=== PATIENT | female | born 1965 | race Caucasian/White ===

== ENCOUNTER 2020-04-12 09:32 | Outpatient (CLI) | payer OTHER, SELFPAY ==
--- NOTE | ~2020-04-12 | MM_ITS ---
EXAMINATION: MM screening [facility] BI w radha HISTORY: Screening mammogram TECHNIQUE: Craniocaudal and mediolateral oblique 3-D tomosynthesis images were obtained and synthetic 2-D images were generated. CAD analysis was submitted and interpreted. COMPARISON: 05/03/2017, 05/02/2016, 04/26/2015, 05/12/2014 BREAST PARENCHYMAL COMPOSITION: There are scattered areas of fibroglandular density. FINDINGS: Scattered benign-appearing calcifications are present. There is no evidence of suspicious m ass, calcification, or architectural distortion to suggest malignancy in either breast. There has bee n no suspicious interval change. IMPRESSION: 1. No mammographic evidence of malignancy. 2. Recommend routine screening mammography in one year. BI-RADS Category 2: Benign finding(s). Reviewed, dictated and finalized at location A.
== END 2020-04-12 09:33 | disposition home or self-care (01) ==
PROVIDERS: PCP Internal Medicine
DX: Z12.31 Encounter for screening mammogram for malignant neoplasm of breast (principal)
CPT/HCPCS: 77063; 77067

== ENCOUNTER 2020-08-15 10:21 | Emergency (ER) | payer OTHER, SELFPAY ==
[2020-08-15] VITALS (14 sets, daily range): BP systolic 131–149; BP diastolic 80–90; PULSE 82–113; RESP 14–30; TEMP 35.8; O2SAT 95–100
--- NOTE | ~2020-08-15 | CT_ITS ---
EXAMINATION: CT brain wo con, CT facial bones wo con DATE: 08/15/2020 10:57 INDICATION: Fall with head injury TECHNIQUE: 1. Computed tomography (CT) of the head was performed without intravenous contrast. Sagittal and samantha nal reconstructions were performed. The mA was adjusted according to patient size. Iterative reconstr uction technique was employed. The dose-length product was 605.33 mGy-cm. 2. CT of the maxillofacial bones was performed without intravenous contrast. Sagittal and coronal rec onstructions were performed. Automated exposure control and iterative reconstruction technique were e mployed. The dose-length product was 417.66 mGy-cm. COMPARISON: Brain MR dated 07/11/2012 FINDINGS: Head CT: No calvarial fracture. No acute intracranial hemorrhage, acute infarction or abnormal extra axial flu id collection. Ventricles are normal and symmetric. 10 x 9 x 5 mm extra-axial calcified dural based m ass most consistent with a meningioma overlying the posterior right frontal lobe. Intracranial calcif ied cerebral atherosclerosis is noted. The mastoid air cells and middle ear cavities are clear. Maxillofacial CT: No significant displacement of bilateral nasal bone fractures. There is slight leftward angulation of the nose which appears unchanged since the prior study. No other maxillofacial fractures identified. Specifically the mandible, zygomatic arches and philippe of the orbits and paranasal sinuses are intact . Extensive dental disease with multiple prior root canals. There is a prominent periapical lucency s urrounding the roots of both of the left maxillary molars, the more anterior with change of prior jj t canal in the more posterior with a dental Tete. There is bulging and thinning of the overlying cor danilo at the floor of the left maxillary sinus with moderate overlying mucosal thickening which is like ly related to the dental disease. IMPRESSION: 1. No calvarial fracture or acute intracranial process. 2. Bilateral nondisplaced nasal bone fractures. 3. 10 x 9 x 5 mm calcified extra-axial meningioma overlying the posterior right frontal lobe. 4. Dental disease with dental Tete at the posterior most left maxillary molar and prominent peripelv ic lucency surrounding the roots of this and the more anterior molar which appears to thin and bulges the overlying cortex at the floor the left maxillary sinus. Consider dental referral. Reviewed, dictated and finalized at location A. ON AND BUCKLE MAKER IMPRESSION: 1. No calvarial fracture or acute intracranial process. 2. Bilateral nondisplaced nasal bone fractures. 3. 10 x 9 x 5 mm calcified extra-axial meningioma overlying the posterior right frontal lobe. 4. Dental disease with dental Tete at the posterior most left maxillary molar and prominent peripelvic lucency surrounding the roots of this and the more ant erior molar which appears to thin and bulges the overlying cortex at the floor the left maxillary sinus. Consider dental referral.
--- NOTE | ~2020-08-15 | XR_ITS ---
EXAMINATION: XR ribs LT 2V w CXR 2V DATE: 08/15/2020 11:04 INDICATION: Left chest injury. Fall. TECHNIQUE: Frontal and lateral views of the chest and 3 views of the left ribs were obtained. COMPARISON: None. FINDINGS: CHEST TWO VIEWS: The chest demonstrates clear lungs without pneumonia, pleural effusion, or pneumotho rax. The heart size is normal. Surgical clips in the right upper quadrant are likely from cholecystec jud. LEFT RIBS: There is no rib fracture. IMPRESSION: 1. No rib fracture. Reviewed, dictated and finalized at location B. PEDDLER IMPRESSION: 1. No rib fracture.
--- NOTE | 2020-08-15 10:48 | ECG_ITS ---
Measurements Intervals [place] Rate: 86 P: 35 TN: 169 QRS: 17 QRSD: 90 T: 4 QT: 352 QTc: 422 Interpretive Statements SINUS RHYTHM NORMAL ECG Electronically Signed On 08-15-2020 13:44:01 MITTEN SEWER by Shree Sousa D.O.
[2020-08-15 11:07] LABS: Basophils Percent Auto 0.5 % (0.2-1.2); Eosinophils Absolute Auto 0.1 K/mm3 (0-0.3); Eosinophils Percent Auto 2.3 % (0-4.4); Hematocrit 35.8 % (37.0-47.0); Hemoglobin 12.4 g/dL (12.0-15.0); Immature Granulocyte Absolute 0.04 K/mm3 (0.00-0.031); Immature Granulocyte Percent A 0.7 % (0-0.5); Lymphocytes Absolute Auto 1.17 K/mm3 (0.9-3.2); Lymphocytes Percent Auto 20.4 % (18.3-44.2); Mean Corpuscular HGB Conc 34.6 g/dl (32-36); Mean Corpuscular Hemoglobin 30.7 pg (26-34); Mean Corpuscular Volume 88.6 fl (80-100); Mean Platelet Volume 9.4 fl (7.4-10.4); Monocytes Absolute Auto 0.6 K/mm3 (0.1-0.6); Monocytes Percent Auto 9.8 % (2.6-8.5); Neutrophils Absolute Auto 3.8 K/mm3 (1.3-6.7); Neutrophils Percent Auto 66.3 % (45.5-73.1); Platelet Count Result 300 k/mm3 (150-375); Red Blood Count 4.04 M/mm3 (4.2-5.4); Red Cell Distribution Width 12.4 % (11.5-14.5); White Blood Count 5.7 K/mm3 (4.5-10.0)
[2020-08-15 11:19] LABS: Alanine Aminotransferase 27 U/L (4-35); Albumin Level 4.1 g/dL (3.5-5.1); Alkaline Phosphatase 72 U/L (38-126); Anion Gap 10 mmol/L (8-16); Aspartate Amino Transferase 26 U/L (14-36); Bilirubin,Total 0.3 mg/dL (0.2-1.3); Blood Urea Nitrogen 11 mg/dL (7-17); Calcium 9.1 mg/dL (8.4-10.2); Carbon Dioxide 28 mmol/L (22-30); Chloride 101 mmol/L (98-107); Estimated CRCL calculation 69 ml/min; Estimated Glomerular Filt Rate > 60; Glucose 145 mg/dL (65-105); Potassium 3.7 mmol/L (3.4-5.0); Sodium 139 mmol/L (137-145)
[2020-08-15] MEDS: SODIUM CHLORIDE 0.9% IV 1,000 ML 999 ML IV CONT (11:22)
[2020-08-15 11:33] LABS: Add Urine Microscopic? NO; Appearance Urine Clear (Clear); Bacteria Urine Trace /hpf; Bilirubin Urine Negative (Negative); Blood Urine Negative (Negative); Color Urine Colorless (Yellow); Glucose Urine UA Negative (Negative); Ketones Urine Negative (Negative); Leukocyte Esterase Ur Negative LEU/UL (Negative); Nitrate Urine Negative (Negative); Protein Urine Negative (Negative); Specific Grav Ur 1.008 (1.001-1.035); Squamous Epithelial Cell Urine Rare /hpf (Few); Urobilinogen Urine Negative mg/dL (<2.0)
--- NOTE | 2020-08-15 12:02 | ED.GENADULT ---
HPI - General Adult General Chief complaint: Syncope Stated complaint: Head Injury Time Seen by Provider: 08/15/20 10:25 Source: patient and family Mode of arrival: ambulatory Limitations: no limitations History of Present Illness HPI narrative: Patient is a 55-year-old female who presents to emergency department for evaluation of dizziness headache and facial injuries patient notes that she on had taken extra carbamazepine which she has prescribed for trigeminal neuralgia which made her dizzy has done historically and notes that she fell during the night possibly blacking out patient notes that this was short-lived and has since felt dizzy with headache primarily worse with activity movement with some slight nausea with bruising to the face. Patient presents per private vehicle no distress has not been seen for this complaint and denies similar symptoms after which and has only been taking her carbamazepine once a day Related Data Home Medications Medication Instructions Recorded Confirmed simvastatin 10 mg tablet 10 mg PO DAILY tablet 05/11/20 06/04/20 Allergies Allergy/AdvReac Type Severity Reaction Status Date / Time tetracycline Allergy Mild HIVES, Verified 08/15/20 11:08 FACE AND NECK SWELLING codeine Allergy Unknown Vomiting Verified 08/15/20 11:08 Review of Systems Review of Systems: All systems reviewed & are unremarkable except as noted in HPI and below PMFSH Past Medical History Medical History (Updated 08/15/20 @ 12:06 by Heriberto Reynaga PA-C) Colon, diverticulosis Hypertension Irritable bowel syndrome with diarrhea Family History Family History Father Patient's father is Diabetes mellitus Family history of cardiovascular disease Sibling Diabetes mellitus Patient's sister is in good health Mother Family history of elevated blood lipids Other Cerebrovascular accident Family history of arthritis Family history of gout Family history of heart disease in male family member before age 55 Hypertension Social History Social History Smoking status: Never smoker Second hand tobacco smoke exposure: No Alcohol intake: current Substance use: never Exam Narrative: Exam Narrative: GENERAL: Well-appearing, well-nourished, and in no acute distress. HEAD: Normocephalic, bruising under the bilateral eyes with tenderness over the nasal bridge EYES: PERRLA and EOMI. ENT: Nares clear, no rhinorrhea or epistaxis. Mucous membranes moist. Oropharynx without tonsillar hypertrophy exudate or other lesions. Small abrasion and bruising to the right lower lip NECK: Supple. No adenopathy or masses. CHEST: Clear to auscultation. No respiratory distress. No wheezes rales or rhonchi HEART: Regular rate and rhythm. No murmur heard. Normal peripheral pulses. ABDOMEN: Soft, nontender, nondistended EXTREMITIES: Normal range of motion. No edema. No cervical thoracic or lumbar tenderness SKIN: Warm, dry, no rash. NEURO: No focal deficits. Alert and oriented x3. Cranial nerves II through XII grossly intact. Normal speech and gait PSYCH: Normal mood and affect. Course Course Emergency Course: Patient in the room in no distress hemodynamically stable felt appropriate for discharge home agreeing to follow-up as directed or to return if symptoms worsen or concerns Vital Signs Vital signs: Vital Signs Temperature 96.4 F L 08/15/20 10:26 Pulse Rate 88 08/15/20 10:26 Respiratory Rate 20 08/15/20 10:26 Blood Pressure 149/86 H 08/15/20 10:26 Pulse Oximetry 97 08/15/20 10:26 Temperature 96.4 F L 08/15/20 10:26 Pulse Rate 92 08/15/20 11:31 Respiratory Rate 16 08/15/20 11:31 Blood Pressure 133/81 08/15/20 11:31 Pulse Oximetry 95 08/15/20 11:15 Medical Decision Making MDM Narrative Medical decision making narrative: Carly
--- NOTE | 2020-08-31 13:03 | PC.NURSE ---
LATE ENTRY This note is being entered to document information to the patient's record. The following information was omitted on [08/15/20], by [Valentina Ojeda]. NS stopped at 1115.
== END 2020-08-15 12:17 | disposition home or self-care (01) ==
PROVIDERS: Emergency Medicine Emergency Medical Services; Emergency Provider Emergency Medicine; PCP Internal Medicine
DX: S02.2XXA Fracture of nasal bones, initial encounter for closed fracture (principal); R55 Syncope and collapse; G50.0 Trigeminal neuralgia; I10 Essential (primary) hypertension; K57.90 Diverticulosis of intestine, part unspecified, without perforation or abscess without bleeding; K58.0 Irritable bowel syndrome with diarrhea; D32.0 Benign neoplasm of cerebral meninges; K02.9 Dental caries, unspecified; W18.39XA Other fall on same level, initial encounter
CPT/HCPCS: 36415; 70450; 70486; 71046; 71100; 80053; 81003; 85025; 93005; 99284; J7030

== ENCOUNTER 2021-02-10 14:07 | Outpatient (CLI) | payer OTHER, SELFPAY | END 2021-02-10 14:08 | disposition home or self-care (01) | PROVIDERS: PCP Internal Medicine; Visit Provider Otolaryngology | DX: H93.13 Tinnitus, bilateral (principal); H90.3 Sensorineural hearing loss, bilateral | CPT/HCPCS: 92557; 92567 ==

== ENCOUNTER 2021-03-28 09:30 | Outpatient (RCR) | payer OTHER, SELFPAY ==
[2021-02-01 10:03] VITALS: BMI 33.0
[2021-02-01 10:04] VITALS: BMI 33.0
[2021-03-28 09:37] VITALS: BMI 33.0
== END 2021-04-19 15:02 | disposition home or self-care (01) ==
LOC: ANHDMC 09:30
PROVIDERS: PCP Internal Medicine; Referring Provider Physician Assistant; Visit Provider Physician Assistant
DX: R73.03 Prediabetes (principal); Z71.3 Dietary counseling and surveillance
CPT/HCPCS: 97802; 97803

== ENCOUNTER → 2021-10-06 09:47 | Outpatient (CLI) | payer OTHER, SELFPAY ==
[2021-10-06 20:43] LABS: SARS-CoV-2 RNA PCR Positive
== END ==
PROVIDERS: PCP Internal Medicine; Visit Provider Physician Assistant
DX: U07.1 COVID-19 (principal)
CPT/HCPCS: C9803; U0003; U0005

== ENCOUNTER 2021-10-10 10:12 | Outpatient (RCR) | payer OTHER, SELFPAY ==
[2021-10-10] MEDS: FAMOTIDINE 20 MG TABLET PO (15:19)
[2021-10-10] MEDS: ACETAMINOPHEN 325 MG TABLET 650 MG PO (15:19)
[2021-10-10] MEDS: diphenhydrAMINE HCl CAP 25 MG CAPSULE PO (15:19)
[2021-10-10 15:20] VITALS: BP 134/74; PULSE 90; RESP 20; TEMP 36.4; O2SAT 98
[2021-10-10 16:21] VITALS: BP 129/80
== END 2021-10-10 17:00 ==
LOC: AMCINF 10:12
PROVIDERS: PCP Physician Assistant; Referring Provider Physician Assistant; Visit Provider Internal Medicine Hematology & Oncology
DX: U07.1 COVID-19 (principal)
CPT/HCPCS: A9270; M0243; Q0244

== ENCOUNTER 2022-07-13 15:12 | Outpatient (CLI) | payer OTHER, SELFPAY ==
--- NOTE | ~2022-07-13 | MM_ITS ---
EXAMINATION: MM screening [facility] BI w radha HISTORY: Screening TECHNIQUE: Craniocaudal and mediolateral oblique 3-D tomosynthesis images were obtained and synthetic 2-D images were generated. CAD analysis was submitted and interpreted. COMPARISON: Comparison to multiple prior studies sequentially, with oldest reviewed study dated . BREAST PARENCHYMAL COMPOSITION: There are scattered areas of fibroglandular density. FINDINGS: No significant change to punctate benign-appearing bilateral breast calcifications. There i s no evidence of suspicious mass, calcification, or architectural distortion to suggest malignancy in either breast. There has been no suspicious interval change. IMPRESSION: 1. No mammographic evidence of malignancy. 2. Recommend routine screening mammography in one year. BI-RADS Category 2: Benign finding(s). Reviewed, dictated and finalized at location A.
== END 2022-07-13 15:13 | disposition home or self-care (01) ==
LOC: ANHIMG 15:14
PROVIDERS: PCP Internal Medicine; Visit Provider Internal Medicine
DX: Z12.31 Encounter for screening mammogram for malignant neoplasm of breast (principal)
CPT/HCPCS: 77063; 77067

== ENCOUNTER 2022-09-24 15:16 | Outpatient (CLI) | payer OTHER, SELFPAY ==
[2022-09-24 16:36] LABS: Influenza A QL RT-PCR Negative (Negative); Influenza B QL RT-PCR Negative (Negative); SARS-CoV-2 RNA PCR Negative
== END 2022-09-24 15:17 | disposition home or self-care (01) ==
LOC: ANHLAB 15:18
PROVIDERS: PCP Internal Medicine; Visit Provider Internal Medicine
DX: R50.9 Fever, unspecified (principal); Z20.822 Contact with and (suspected) exposure to COVID-19
CPT/HCPCS: 87636

== ENCOUNTER 2022-11-01 09:58 | Outpatient (CLI) | payer OTHER, SELFPAY ==
--- NOTE | 2022-11-01 10:15 | EST_ITS ---
Patient Info Name: Patricia Clark Age: 57 years : 1965 Gender: Female Ht: 60 in Wt: 175 lbs BSA: 1.87 m2 HR: 76 bpm Exam Date: 11/01/2022 10:49 AM Exam Location: [facility] Card Pulmonary Exam Room: [facility] STRESS LAB Patient Status: Outpatient Admit Date: 11/01/2022 Staff Ordering Physician: Sreekanth Jacob PA-C Health And Physical Education Teacher: Julieth Valente RDCS Attending Provider: Sreekanth Jacob PA-C Exercise Technologist: Shanika Madrid CT Exercise Physician: Shree Sousa DO Exam Type: CA stress echo Study Info Treadmill exercise stress echocardiogram is performed. Summary 1. 1. Negative Tao exercise stress test for ischemic ST changes by ECG criteria. 2. 2. Reduced functional capacity, achieving 7 METs of workload. 3. 3. Appropriate HR response to exercise. 4. 4. Appropriate HR recovery at 1 minute post exercise. 5. 5. Negative stress echocardiogram for ischemia by wall motion analysis. 6. 6. Patient informed of the above results. Stress Echo Findings Left Ventricle Appropriate increase in LV endocardial thickening with systole. Appropriate augmentation of contractility with systole. No wall motion abnormality. Left Ventricle Normal LV systolic function, no wall motion abnormality. Protocol: Tao Stress ECG Details Stage: REST Duration (min): 1 min : 43 sec Speed (mph): 0.0 Grade (%): 0 HR (bpm): 71 SBP (mmHg): 120 DBP (mmHg): 77 METS: --- Stage: REST Duration (min): 6 min : 34 sec Speed (mph): 0.0 Grade (%): 0 HR (bpm): 79 SBP (mmHg): 120 DBP (mmHg): 77 METS: --- Stage: STAGE 1 Duration (min): 1 min : 0 sec Speed (mph): 1.7 Grade (%): 10 HR (bpm): 113 SBP (mmHg): 120 DBP (mmHg): 77 METS: --- Stage: STAGE 1 Duration (min): 2 min : 0 sec Speed (mph): 1.7 Grade (%): 10 HR (bpm): 130 SBP (mmHg): 120 DBP (mmHg): 77 METS: --- Stage: STAGE 1 Duration (min): 3 min : 0 sec Speed (mph): 1.7 Grade (%): 10 HR (bpm): 130 SBP (mmHg): 163 DBP (mmHg): 78 METS: --- Stage: STAGE 2 Duration (min): 1 min : 0 sec Speed (mph): 2.5 Grade (%): 12 HR (bpm): 143 SBP (mmHg): 163 DBP (mmHg): 78 METS: --- Stage: STAGE 2 Duration (min): 2 min : 0 sec Speed (mph): 2.5 Grade (%): 12 HR (bpm): 153 SBP (mmHg): 189 DBP (mmHg): 82 METS: --- Stage: STAGE 2 Duration (min): 3 min : 0 sec Speed (mph): 2.5 Grade (%): 12 HR (bpm): 156 SBP (mmHg): 189 DBP (mmHg): 82 METS: --- Stage: STAGE 3 Duration (min): 0 min : 2 sec Speed (mph): 0.0 Grade (%): 0 HR (bpm): 156 SBP (mmHg): 189 DBP (mmHg): 82 METS: --- Stage: RECOVERY Duration (min): 0 min : 57 sec Speed (mph): 0.0 Grade (%): 0 HR (bpm): 123 SBP (mmHg): 189 DBP (mmHg): 82 METS: --- Stage: RECOVERY Duration (min): 1 min : 57 sec Speed (mph): 0.0 Grade (%): 0 HR (bpm): 104 SBP (mm
== END 2022-11-01 09:59 | disposition home or self-care (01) ==
LOC: ANHCARD 09:59
PROVIDERS: PCP Internal Medicine; Visit Provider Physician Assistant
DX: R06.09 Other forms of dyspnea (principal); R60.0 Localized edema
CPT/HCPCS: 93351

== ENCOUNTER 2022-11-27 10:03 | Emergency (ER) | payer OTHER, SELFPAY ==
--- NOTE | ~2022-11-27 | CT_ITS ---
EXAMINATION: CT abdomen pelvis w con DATE: 11/27/2022 12:42 INDICATION: Abdominal pain TECHNIQUE: Computed tomography (CT) of the abdomen and pelvis was performed with 100 cc Omnipaque 350 intravenous contrast. The dose-length product was 636.46 mGy-cm. Automated exposure control and iter ative reconstruction technique were employed. COMPARISON: CT dated 04/02/2015 FINDINGS: Lung bases are unremarkable. Heart size normal. No significant pleural or pericardial effus ion. Status post cholecystectomy. Fatty infiltration of the liver. The spleen, pancreas, adrenal glan ds and kidneys are unremarkable. There is fluid throughout the small bowel and colon with air-fluid l evels, most likely ileus. No definite obstruction. Colonic diverticulosis without evidence for divert iculitis. Small punctate focus of nondependent gas in the bladder, possibly from recent instrumentati on. Clinically correlate. There are surgical clips suggesting previous appendectomy. Clinically corre late. Mild lumbar spondylosis. IMPRESSION: 1. Fluid throughout the small bowel and colon which may reflect enteritis or ileus. No obstruction. 2: Hepatic steatosis. Reviewed, dictated and finalized at location L. L PROCESS SERVER IMPRESSION: 1. Fluid throughout the small bowel and colon which may reflect enteritis or il eus. No obstruction. 2: Hepatic steatosis.
[2022-11-27 10:04] VITALS: BP 116/79; PULSE 120; RESP 16; TEMP 36.6; O2SAT 96
[2022-11-27 10:29] LABS: Appearance Urine Clear (Clear); Bilirubin Urine Negative (Negative); Blood Urine Trace-lysed (Negative); Color Urine Yellow (Yellow); Glucose Urine UA Negative (Negative); Ketones Urine Negative (Negative); Leukocyte Esterase Ur Negative LEU/UL (Negative); Nitrate Urine Negative (Negative); Protein Urine Negative (Negative); Specific Grav Ur <= 1.005 (1.001-1.035); Urobilinogen Urine 0.2 mg/dL (<2.0)
[2022-11-27 10:29] LABS: Basophils Percent Auto 0.4 % (0.2-1.2); Eosinophils Percent Auto 0.7 % (0-4.4); Hematocrit 40.7 % (37.0-47.0); Hemoglobin 13.6 g/dL (12.0-15.0); Immature Granulocyte Absolute 0.04 K/mm3 (0.00-0.031); Immature Granulocyte Percent A 0.7 % (0-0.5); Lymphocytes Absolute Auto 0.65 K/mm3 (0.9-3.2); Lymphocytes Percent Auto 11.9 % (18.3-44.2); Mean Corpuscular HGB Conc 33.4 g/dl (32-36); Mean Corpuscular Hemoglobin 29.4 pg (26-34); Mean Corpuscular Volume 88.1 fl (80-100); Mean Platelet Volume 9.7 fl (7.4-10.4); Monocytes Absolute Auto 0.6 K/mm3 (0.1-0.6); Monocytes Percent Auto 11.4 % (2.6-8.5); Neutrophils Absolute Auto 4.1 K/mm3 (1.3-6.7); Neutrophils Percent Auto 74.9 % (45.5-73.1); Platelet Count Result 258 k/mm3 (150-375); Red Blood Count 4.62 M/mm3 (4.2-5.4); Red Cell Distribution Width 13.6 % (11.5-14.5); White Blood Count 5.5 K/mm3 (4.5-10.0)
[2022-11-27 10:32] LABS: Bacteria Urine Trace /hpf; Mucus Urine Rare /lpf; RBC Urine 0-2 /hpf (0-2); Squamous Epithelial Cell Urine Rare /hpf (Few); WBC Urine 0-3 /hpf
[2022-11-27 10:36] LABS: Add Urine Microscopic? YES
[2022-11-27 10:38] LABS: Alanine Aminotransferase 47 U/L (6-35); Albumin Level 4.3 g/dL (3.5-5.1); Alkaline Phosphatase 92 U/L (38-126); Anion Gap 7 mmol/L (8-16); Aspartate Amino Transferase 49 U/L (14-36); Bilirubin,Total 1.2 mg/dL (0.2-1.3); Blood Urea Nitrogen 11 mg/dL (7-17); Calcium 8.4 mg/dL (8.4-10.2); Carbon Dioxide 31 mmol/L (22-30); Chloride 99 mmol/L (98-107); Estimated CRCL calculation 62 ml/min; Estimated Glomerular Filt Rate > 60; Glucose 115 mg/dL (65-110); Lipase 64 U/L (23-300); Potassium 3.5 mmol/L (3.4-5.0); Sodium 137 mmol/L (137-145)
--- NOTE | 2022-11-27 12:19 | ED.ABDPAIN ---
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 Patient vomited once last night, diarrhea almost every hour. Gradually slowing down. Low-grade fever at 99 Fahrenheit. She denies any respiratory symptoms, intermittent abdominal cramps, history of diverticulitis. No bloody diarrhea. Patient started on Imodium [id number] last night. Related Data Allergies Allergy/AdvReac Type Severity Reaction Status Date / Time tetracycline Allergy Mild HIVES, Verified 11/27/22 12:15 FACE AND NECK SWELLING codeine Allergy Unknown Vomiting Verified 11/27/22 12:15 Review of Systems Review of Systems: All systems reviewed & are unremarkable except as noted in HPI and below PMFSH Past Medical History Medical History Colon, diverticulosis Hypertension Hypertension complications Irritable bowel syndrome with diarrhea Surgical History Surgical History History of foot surgery Family History Family History Father Patient's father is Diabetes mellitus Family history of cardiovascular disease Sibling Diabetes mellitus Patient's sister is in good health Mother Family history of elevated blood lipids Other Cerebrovascular accident Family history of arthritis Family history of gout Family history of heart disease in male family member before age 55 Hypertension Social History Social History Smoking status: Never smoker Second hand tobacco smoke exposure: No Alcohol intake: current Alcohol use details: rarely Substance use: never Lack of Transportation: No Lack of Food: Never True Current Housing: I Have Housing Concerned About Future Housing: No Difficulty Paying Gas/Electric Bills: No Difficulty Paying for Meds: No Currently Unemployed: No Education: Master's Degree or Higher Difficulty w/ Childcare or Family Care: No Spiritual care concerns: No Exam Narrative: General appearance: Well-developed, well-nourished Skin: Normal color Head: Normocephalic, nontraumatic Eyes: Clear conjunctiva ENT: Oropharynx normal, ears normal, nose normal Neck: Supple, nontender Chest and respiratory: Airway patent, no respiratory distress, no accessory muscle use Heart: Regular rate/rhythm Abdomen: Soft, mild diffuse tenderness, no guarding or rebound , no organomegaly, hyperactive bowel sounds Vascular: Normal peripheral pulses, normal capillary refill. Musculoskeletal: Normal range of motion, nontender back Neurologic: Alert and oriented ?3, SHEET TAILER is normal as tested, no gross motor deficit Course Reevaluation(s) Reevaluation #1: Patient feeling much better after IV Zofran and fluids. Ready to go. Date: 11/27/22 Time: 13:49 Vital Signs Vital signs: Vital Signs Temperature 36.6 C 11/27/22 10:04 Pulse Rate 120 H 11/27/22 10:04 Respiratory Rate 16 11/27/22 10:04 Blood Pressure 116/79 11/27/22 10:04 Pulse Oximetry 96 11/27/22 10:04 Oxygen Delivery Room Air 11/27/22 10:04 Temperature 36.6 C 11/27/22 10:04 Pulse Rate 99 11/27/22 12:51 Respiratory Rate 18 11/27/22 12:51 Blood Pressure 101/60 11/27/22 12:51 Pulse Oximetry 96
[2022-11-27] MEDS: MORPHINE SULFATE (*CRX) 4 MG/ML INJ IV PUSH (12:50)
[2022-11-27] MEDS: SODIUM CHLORIDE 0.9% IV 1,000 ML 999 ML IV CONT (12:50)
[2022-11-27] MEDS: ONDANSETRON INJ 4 MG/2 ML VIAL IV PUSH (12:50)
[2022-11-27 12:51] VITALS: BP 101/60; PULSE 99; RESP 18; O2SAT 96
== END 2022-11-27 14:29 | disposition home or self-care (01) ==
PROVIDERS: Emergency Medicine; Emergency Provider Emergency Medicine; PCP Internal Medicine
DX: A08.4 Viral intestinal infection, unspecified (principal); I10 Essential (primary) hypertension; K58.0 Irritable bowel syndrome with diarrhea; K76.0 Fatty (change of) liver, not elsewhere classified
CPT/HCPCS: 36415; 74177; 80053; 81001; 83690; 85025; 96361; 96374; 96375; 99284; J2270; J2405; J7030; Q9967

== ENCOUNTER → 2023-05-01 11:17 | Outpatient (CLI) | payer OTHER, SELFPAY ==
--- NOTE | ~2023-05-01 | MR_ITS ---
MRI of the right wrist Technique: Coronal T1 weighted and proton density fat sat images, and axial and sagittal proton-densi ty and proton-density fat-sat images were acquired. Clinical History: Pain Findings: Scapholunate ligament is intact, and there is no widening of the scapholunate interval. Izaiah otriquetral ligament is intact. No perforation of the central articular disc of the TFCC. There are mild to moderate degenerative changes at the STT articulations. There is severe degenerativ e change at the first carpometacarpal joint, with subchondral cystic change about the joint and high- grade chondromalacia. There is a probable ganglion cyst extending along the radial side of the first CMC joint, probably extending from the first CMC joint, which contains a 9 mm loose body (series 5 im age 8, series 3 images 12-13). No fracture identified. No suspicious bone marrow edema identified. No evidence for osteitis. Flexor tendons in the carpal tunnel are unremarkable. Extensor tendons are unremarkable. No other sof t tissue mass or fluid collection evident. IMPRESSION: Severe osteoarthritis of the first carpometacarpal joint, with probable ganglion cyst extending from the joint which contains a 9 mm loose body. Please see details above. Mild to moderate degenerative change at the STT articulations. Reviewed, dictated and finalized at location . IMPRESSION: Severe osteoarthritis of the first carpometacarpal joint, with probable ganglio n cyst extending from the joint which contains a 9 mm loose body. Please see de tails above. Mild to moderate degenerative change at the STT articulations.
== END ==
PROVIDERS: PCP Internal Medicine; Visit Provider Nurse Practitioner
DX: M25.531 Pain in right wrist (principal); M19.031 Primary osteoarthritis, right wrist; M24.031 Loose body in right wrist
CPT/HCPCS: 73221

== ENCOUNTER 2023-09-16 15:12 | Outpatient (CLI) | payer OTHER, SELFPAY ==
[2023-09-16 15:53] LABS: INR 0.9; Prothrombin Time 12.8 Seconds (11.1-14.7)
[2023-09-16 15:54] LABS: Partial Thromboplastin Time 26.3 SECONDS (22.3-36.8)
[2023-09-16 15:59] LABS: Anion Gap 8 mmol/L (8-16); Blood Urea Nitrogen 14 mg/dL (7-17); Calcium 9.4 mg/dL (8.4-10.2); Carbon Dioxide 26 mmol/L (22-30); Chloride 100 mmol/L (98-107); Estimated Glomerular Filt Rate > 60; Glucose 117 mg/dL (65-110); Potassium 3.8 mmol/L (3.4-5.0); Sodium 134 mmol/L (137-145)
== END 2023-09-16 15:13 | disposition home or self-care (01) ==
LOC: ANHSURGERY 15:16
PROVIDERS: Anesthesiology; PCP Internal Medicine; Visit Provider Plastic Surgery
DX: Z01.818 Encounter for other preprocedural examination (principal); R73.03 Prediabetes; K76.0 Fatty (change of) liver, not elsewhere classified
CPT/HCPCS: 36415; 80048; 85610; 85730

== ENCOUNTER 2023-09-18 00:36 | Day surgery (SDC) | payer OTHER, SELFPAY ==
[2023-09-16 09:47] VITALS: BMI 33.2
--- NOTE | 2023-09-16 10:15 | PC.NURSE ---
Report to the Outpatient Waiting Room, entrance under the green pavilion located off [facility], at time _1200__ on date _09/18/23___. Planned Procedure Time: __1400 . Time changes happen often and if your time is changed the preop area will call you the afternoon before. - You and your visitor will be asked to self-screen and do not enter if you have any COVID symptoms. - A mask is optional within the hospital at this time. Patients may have clear liquids (water, carbonated beverages, clear teas, apple juice) until 8 hours prior to surgery with a maximum of 20 ounces. - No food from midnight until time of surgery Last Liquid 6:00 A.M. Take the following medications with a SIP of water the morning of surgery: __Escitalopram, levothyroxine, Diltiazem____ DO NOT STOP ANY OF YOUR OTHER PRESCRIPTION MEDICATIONS PRIOR TO SURGERY ?EXCEPT THE FOLLOWING Medications to discontinue per physician ___N/A Date to take last dose N/A Please no make-up, nail urdu, hairspray, perfume, deodorant, or body powder the day of surgery. No jewelry (including any body piercings) or valuables the day of surgery, leave them at home. Please take a shower or bath the night before, or the morning of, surgery with an antibacterial soap. Wear comfortable, loose fitting clothing. - Jewelry must be removed prior to entering the operating room. Rings and piercings that are not removed may be cut off. - The hospital will not accept responsibility for valuables. - Please leave all valuables, including medications, at home the day of surgery. If you are going home after surgery, a licensed moving van driver must drive you home. - NO public transportation without another adult if you receive anesthesia. - We recommend that an adult stay with you for 24 hours following discharge. - We also recommend that you do not drive, make important decision, drink alcoholic beverages, or take any drugs that were not prescribed by your health care provider for at least 24 hours after your discharge time. Follow any additional instructions given to you from your surgeon. If you or anyone in your household have experienced Covid symptoms in the past week, please notify your surgeon or the nurse liaison at the phone number below for possible testing. Telephone instructions given to _Patricia Clark___and asked if any additional questions and then verbalized understanding. Patient advised to call surgeon office or pre surgery nurse liaison [phone] if any additional questions.
--- NOTE | ~2023-09-18 | XR_ITS ---
EXAMINATION: XR surgery orthopedic DATE: 09/18/2023 14:17 INDICATION: Right-sided DeQuervain tenosynovitis and right wrist ossicle. TECHNIQUE: 3 intraoperative fluoroscopic views of right hand were obtained. I was not present. Fluoro scopy exposure time was 4 seconds. COMPARISON: Right hand radiographs 04/29/2023 FINDINGS: Images demonstrate resection of heterotopic ossification radial to triscaphe joint. IMPRESSION: 1. Resection of heterotopic ossification radial to the carpus. Reviewed, dictated and finalized at location 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
--- NOTE | 2023-09-18 08:58 | PM.HPGS ---
History of Present Illness History of Present Illness Chief complaint: lesion bone right hand, radial tendonitis rt hand Narrative: Patient seen and examined in pre-operative holding area. No interval change in medical history or symptoms. Patient recalls previous discussion of benefits and alternatives to procedure. Continues to desire to proceed with right 1st extensor compartment release and right wrist ossicle excision. Reviewed procedure, post-op expectations and risks including but not limited to bleeding, infection, injury to tendon/nerve/vessel, decreased hand function, stiffness, RSD, no change or worsening of symptoms. I discussed the possible use of assistants and their participation in the case. Patient stated understanding and signed the consent form wishing to proceed. Review of Systems Review of Systems: All systems reviewed & are unremarkable except as noted in HPI and below PMFSH Past Medical History Medical History Acute lymphadenitis Arthritis Colon, diverticulosis Depression GDM (gestational diabetes mellitus) Hearing Loss Hyperlipidemia Hypertension Hypothyroidism Irritable bowel syndrome with diarrhea Obesity (BMI 30-39.9) SENDY (obstructive sleep apnea) Prediabetes Surgical History Surgical History History of appendectomy History of cholecystectomy History of foot surgery History of surgery on lower extremity ACL repair, right knee History of tonsillectomy Family History Family History Father Patient's father is Diabetes mellitus Family history of cardiovascular disease Acute myocardial infarction Depression Heart disease Hypertension Sibling Patient's sister is in good health Depression sister Diabetes mellitus sister Hypertension Mother Family history of elevated blood lipids Family history of arthritis Hypertension Grandparent Acute myocardial infarction x3 Cerebrovascular accident x3 Diabetes mellitus x3 Family history of arthritis Heart disease Hypertension Lung cancer Other Depression aunt Lung cancer uncle Son Depression x2 Social History Social History Smoking status: Never smoker Second hand tobacco smoke exposure: No Alcohol intake: current Drinks per week: 1 Alcohol use details: socially Substance use: never Lack of Transportation: No Lack of Food: Never True Current Housing: I Have Housing Concerned About Future Housing: No Difficulty Paying Gas/Electric Bills: No Difficulty Paying for Meds: No Currently Unemployed: No Education: Master's Degree or Higher Difficulty w/ Childcare or Family Care: No Living arrangements: with family Occupation/Education: occupation 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 Spiritual care concerns: No Meds Home Medications and Allergies Home Medications Medication Instructions Recorded Confirmed Type lisinopril 20 mg tablet See Rx Instructions .Route 10/18/22 09/16/23 Rx .COMPLEX #90 tabs estradiol 0.025 mg/24 hr 1 patch transdermal 2XW 03/07/23 09/16/23 History semiweekly transdermal patch progesterone micronized 100 mg 100 mg PO QAM 03/07/23 09/16/23 History capsule testosterone 30 mg/actuation (1.5 2 pump topical DAILY 03/07/23 09/16/23 History mL) transderm solution metered pump diltiazem HCl 120 mg 120 mg PO DAILY #90 tabs 03/29/23 09/16/23 Rx tablet,extended release 24 hr blood sugar diagnostic (FreeStyle #100 ea 06/12/23 09/16/23 Rx Lite Strips) blood-glucose meter (FreeStyle #1 ea 06/28/23 09/16/23 Rx Lite Meter kit) atorvastatin 20 mg tablet 20 mg PO DAILY #90 tabs 07/05/23 09/16/23 Rx levothyroxine 50 mcg tablet 50 mcg PO DAILY #
--- NOTE | 2023-09-18 08:59 | W.PM.PROC2 ---
Procedure Note - Detailed Date of Procedure 09/18/23 Pre-op Diagnosis right de quervains and ossicle right wrist Post-op Diagnosis Same Procedure Performed right 1st extensor compartment release and excision right wrist ossicle Surgeon Bull Hoang MD Anesthesia MAC Description of Procedure INFORMED CONSENT: The patient was seen and examined and marked in the pre-op area.? The patient signed the consent form. PROCEDURE IN DETAIL:The patient taken back to OR on the stretcher in supine position. Time out performed with anesthesia, surgeon and staff agreeing on patient's name site and surgery to be performed SCDs were placed on the lower extremities and inflated. A tourniquet was placed on {right} upper extremity and antibiotics given IV After anesthesia administered sedation I injected {6}cc 1%lido with epi and 0.5% marcaine plain at the operative site The?{right upper extremity}?was prepped and draped in sterile fashion the??{right upper extremity} was? exsanguinated with Esmarch bandage and tourniquet inflated to 250mmHg I proceeded with making a longitduinal incision over 1st extensor compartment through skin and dermis with a 15 blade scalpel. I spread with littler scissors down to compartment sheath. The dorsal radial sensory nerve was identified and protected throughout the procedure. I initially incised the sheath with 1 blade scalpel and then littler scissors were used to spread above it and below it and then used to complete 1st extensor compartment sheath incision. The APL and APB tendons were inspected and free of masses and synovitis and gliding smoothly without crepitus. No subsheaths were identified. I irrigated with normal saline and closed with 4-0 monocryl for dermis and subcuticular closure. I next proceeded with making an oblique incision over right wrist mass/ossicle through skin and dermis over the mass with 15 blade. I spread down to joint capsule and incised the capsule. I identified the ossicle and verified location on mini c-arm. I excised after circumferential dissection with 15 blade. I irrigated with NS and closed capsule with 4-0 monocryl. 4-0 chromic was used for skin closure. A dressing of Dermabond for wrist and xeroform for palm, 4x4, paul, and a volar splint was applied for patient safety, security, and comfort and secured with an carl bandage after the tourniquet was let down noting the hand was warm and well perfused. The patient was then awaken from anesthesia and transferred to the recovery room in stable condition.? Complications - none EBL- 0cc Disposition - home in stable conditions [facility] [place] Billing Surgery - Charge Forward: Surgery Billing ([id number])
--- NOTE | 2023-09-18 12:51 | WPDANESEPPF ---
Anes - Initial Pre Proc Eval Procedure: Operation Date: 09/18/23 14:00 Proposed Procedures p Right First Extensor Compartment Release, - Bull Hoang MD s Excision Ossicle Right Hand - Bull Hoang MD Date/Time: 09/18/23 12:51 Surgeon: Bull Hoang MD Pre Op Diagnosis: lesion bone right hand, radial tendonitis rt hand Patient Data Age: 58 Gender: F Height: 1.52 m Weight: 77.11 kg Last Vital Signs O2 Del Method Room Air 09/16/23 09:21 Allergies Allergy/AdvReac Type Severity Reaction Status Date / Time tetracycline Allergy Mild HIVES, Verified 09/16/23 09:42 FACE AND NECK SWELLING codeine Allergy Unknown Vomiting Verified 09/16/23 09:42 Home Medications Medication Instructions Recorded Confirmed Type lisinopril 20 mg tablet See Rx Instructions .Route 10/18/22 09/16/23 Rx .COMPLEX #90 tabs estradiol 0.025 mg/24 hr 1 patch transdermal 2XW 03/07/23 09/16/23 History semiweekly transdermal patch progesterone micronized 100 mg 100 mg PO QAM 03/07/23 09/16/23 History capsule testosterone 30 mg/actuation (1.5 2 pump topical DAILY 03/07/23 09/16/23 History mL) transderm solution metered pump diltiazem HCl 120 mg 120 mg PO DAILY #90 tabs 03/29/23 09/16/23 Rx tablet,extended release 24 hr blood sugar diagnostic (FreeStyle #100 ea 06/12/23 09/16/23 Rx Lite Strips) blood-glucose meter (FreeStyle #1 ea 06/28/23 09/16/23 Rx Lite Meter kit) atorvastatin 20 mg tablet 20 mg PO DAILY #90 tabs 07/05/23 09/16/23 Rx levothyroxine 50 mcg tablet 50 mcg PO DAILY #90 tabs 08/31/23 09/16/23 Rx escitalopram oxalate 20 mg tablet 20 mg PO DAILY #90 tabs 09/03/23 09/16/23 Rx metformin 500 mg tablet,extended 1,000 mg PO BID 90 days #360 tabs 09/10/23 09/16/23 Rx release 24hr (osmotic) Patient hx anesthesia problems: post op nausea/vomiting Family hx anesthesia problems: none Results Review: All pre-operative results and documents have been reviewed as part of the pre-operative evaluation. [facility] Past Medical History Medical History Acute lymphadenitis Arthritis Colon, diverticulosis Depression GDM (gestational diabetes mellitus) Hearing Loss Hyperlipidemia Hypertension Hypothyroidism Irritable bowel syndrome with diarrhea Obesity (BMI 30-39.9) SENDY (obstructive sleep apnea) Prediabetes Surgical History Surgical History History of appendectomy History of cholecystectomy History of foot surgery History of surgery on lower extremity ACL repair, right knee History of tonsillectomy Family History Family History Father Patient's father is Diabetes mellitus Family history of cardiovascular disease Acute myocardial infarction Depression Heart disease Hypertension Sibling Patient's sister is in good health Depression sister Diabetes mellitus sister Hypertension Mother Family history of elevated blood lipids Family history of arthritis Hypertension Grandparent Acute myocardial infarction x3 Cerebrovascular accident x3 Diabetes mellitus x3 Family history of arthritis Heart disease Hypertension Lung cancer Other Depression aunt Lung cancer uncle Son Depression x2 Social History Social History Smoking status: Never smoker Second hand tobacco smoke exposure: No Alcohol intake: current Drinks per week: 1 Alcohol use details: socially Substance use: never Lack of Transportation: No Lack of Food: Never True Current Housing: I Have Housing Concerned About Future Housing: No Difficulty Paying Gas/Electric Bills: No Difficulty Paying for Meds: No Currently Unemployed: No Education: Master's Degr
[2023-09-18 13:03] VITALS: BP 125/72; PULSE 91; RESP 14; TEMP 36.2; O2SAT 97
[2023-09-18] MEDS: LACTATED RINGERS 1,000 ML 30 ML IV CONT (13:06)
[2023-09-18 13:51] LABS: Glucose Point of Care 105 mg/dl (65-105)
[2023-09-18] MEDS: ceFAZolin 2 GM/D5W 50 ML 2 GM/50 ML BAG IVPB (13:52)
[2023-09-18] MEDS: LIDOCAINE/EPINEPHRINE 0.5%/1:200,000 50 ML VIAL 10 ML INFILTRATE (14:10)
[2023-09-18] MEDS: BUPivacaine HCL 0.5% PF 30 ML VIAL 5 ML INFILTRATE (14:10)
[2023-09-18 14:22] VITALS: BP 91/58; PULSE 81; RESP 14; O2SAT 95
[2023-09-18 14:34] LABS: Glucose Point of Care 109 mg/dl (65-105)
[2023-09-18 14:50] VITALS: BP 124/73; PULSE 70; RESP 16
[2023-09-18 15:20] VITALS: BP 114/64; PULSE 72; RESP 16
== END 2023-09-18 15:32 | disposition home or self-care (01) ==
PROVIDERS: PCP Internal Medicine; Visit Provider Plastic Surgery
PROC: (CPT 25000; principal; 2023-09-18 14:00)
PROC: (CPT 25000; 2023-09-18 14:00)
DX: M65.4 Radial styloid tenosynovitis [de Quervain] (principal); M89.9 Disorder of bone, unspecified; I10 Essential (primary) hypertension; E78.5 Hyperlipidemia, unspecified; E03.9 Hypothyroidism, unspecified; K58.0 Irritable bowel syndrome with diarrhea; G47.33 Obstructive sleep apnea (adult) (pediatric); R73.03 Prediabetes; F32.A Depression, unspecified; E66.9 Obesity, unspecified; Z68.33 Body mass index [BMI] 33.0-33.9, adult
CPT/HCPCS: 25000; 25120; 36415; 80048; 82948; 85610; 85730; 88309; 88311; 99199; A9270; J0690; J2250; J2704; J3010; J7120

== ENCOUNTER 2024-12-02 14:23 | Outpatient (CLI) | payer OTHER, SELFPAY ==
--- NOTE | ~2024-12-02 | MM_ITS ---
EXAMINATION: MM screening nikos BI w radha HISTORY: Screening mammogram TECHNIQUE: Craniocaudal and mediolateral oblique 3-D tomosynthesis images were obtained and synthetic 2-D images were generated. CAD analysis was submitted and interpreted. COMPARISON: 07/13/2022, 04/12/2020 BREAST PARENCHYMAL COMPOSITION:Not Dense. There are scattered areas of fibroglandular density. FINDINGS: No suspicious mass, calcification, or architectural distortion are identified in either reinier ast to suggest malignancy. There has been no suspicious interval change. IMPRESSION: No mammographic evidence of malignancy. Recommend routine screening mammography in one year. BI-RADS Category 1: Negative Reviewed, dictated and finalized at location . T CHANGER
--- OUTSIDE RECORDS SUMMARY | 2024-12-02 16:32 | XMS_ITS | Encounter Summary ---
Author Organization [facility] Address [address] [place] [address] Phone Care Team Providers Care Deburring And Tooling Machine Operator Name Role Phone Vlad Ohara MD Primary Care Provider [phone] Vlad Ohara MD Unavailable [phone] Encounter Details Date Type Department Care Team (Late st Contact Info) Description 07/22/2019 Orders Only [facility] Orthopaedic Surgery [address] [place] [id number] Scanning, Provider Social History Tobacco Use Types Packs/Day Years Used Date Smoking Tobacco: Never Smokeless Tobacco: Never Alcohol Use Standard Drinks/Week Comments Yes 10 (1 standard drink = 0.6 oz pu re alcohol) Comments Unknown Sex and Gender Information Value Date Recorded Sex Assigned at Not on file 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 Not on file Not on file documented as of this encounter Plan of Treatment Not on file documented as of this encounter Procedures Procedure Name Priority Date/Time Associated Diagnosis Comments SCAN - RADIOLOGY/IMAGING 07/22/2019 documented in this encounter Results * SCAN - RADIOLOGY/IMAGING (07/22/2019) Anatomical Region Laterality Modality Other us Provider Scanning Final Result documented in this encounter Visit Diagnoses Not on filedocumented in this encounter Care Teams Deburring And Tooling Machine Operator Relationship Specialty Start Date End Date Vlad Ohara MD [address] [facility] [address] [place] [address] PCP - General 12/26/16 Vlad Ohara MD [address] [facility] [address] [place] [address] 12/26/16 documented as of this encounter
--- OUTSIDE RECORDS SUMMARY | 2024-12-02 16:32 | XMS_ITS | Referral Summary ---
Author Organization [facility] Address [address] [place] [address] Care Team Providers Care Fence Supervisor Name Role Phone Vlad Ohara MD Primary Care Provider [phone] Vlad Ohara MD Unavailable [phone] Allergies Active Allergy Reactions Criticality Noted Date Comments Codeine Nausea & Vomiting Low 01/28/2017 Tetracycline Rash Medium Medications escitalopram (LEXAPRO) 10 mg tablet take 1 tablet by oral route every day 0 0 7 Active Additional Information Patient taking differently:10 mgoral Every morning, Indications: Anxiety with Depression, Informant: Self, Reported on 05/23/2022 felodipine (PLENDIL) 5 mg 24 hr tablet take 1 tablet by oral route every day 0 0 7 Active Additional Information Patient taking differently:5 mgoral Every morning, Indications: hypertension, Informant: Self, Reported on 05/23/2022 simvastatin (ZOCOR) 5 mg tablet take 1 tablet by oral route every day in the evening 0 0 7 Active Additional Information Patient taking differently:5 mgoral Every morning, Indications: hyperlipidemia, Informant: Self, Reported on 05/23/2022 lisinopriL (PRINIVIL,ZESTR IL) 20 mg tabletIndicatio ns:hypertension Take 20 mg by mouth every morning Active levothyroxine (SYNTHROID) 50 mcg tabletIndicatio ns:hypothyroidi sm Take 50 mcg by mouth field service engineer before breakfast Active pen needle, diabetic 32 gauge x 1/4 needle Novofine 32 32 gauge x 1/4 needle USE WITH SAXENDA Active cephalexin (KEFLEX) 500 mg capsule TAKE ONE CAPSULE BY MOUTH EVERY 6 HOURS 2 Active estradioL (VAGIFEM) 10 mcg tablet estradiol 10 mcg vaginal tablet INSERT 1 TABLET VAGINALLY 2 TIMES A WEEK FOR 14 DAYS Active HYDROcodone-carl taminophen (NORCO) 5-325 mg per tablet Take 1 tablet by mouth 2 Active triazolam (HALCION) 0.25 mg tablet TAKE 2 TABLETS BY MOUTH 90 MINUTES BEFORE APPOINTMENT 3 Active semaglutide (Wegovy) 0.25 mg/0.5 mL auto-injector 0.5 mL (0.25 mg total) Active estradioL (VIVELLE-DOT) 0.0375 mg/24 hr 3 Active progesterone (PROMETRIUM) 100 mg capsule progesterone micronized 100 mg capsule Active phentermine (ADIPEX-P) 37.5 mg tablet phentermine 37.5 mg tablet TAKE 1/2 TABLET BY MOUTH TWICE DAILY Active atorvastatin (LIPITOR) 20 mg tablet atorvastatin 20 mg tablet Active Active Problems Problem Noted Date Diagnosed Date Atrophic vaginitis 05/14/2022 Arthritis of left foot 03/22/2022 Overview (03/22/2022): Added automatically from request for surgery [id number] Chondromalacia of medial femoral condyle, right 07/15/2019 Effusion of right knee 07/15/2019 Argueta's cyst of knee, right 07/13/2019 Complete tear of right ACL, subsequent encounter 05/25/2019 Overview (05/25/2019): Added automatically from request for surgery [id number] Tear of medial meniscus of right knee, current 0 05/25/2019 Overview (05/25/2019): Added automatically from request for surgery [id number] Trigeminal neuralgia 08/14/2018 Pain of foot 08/07/2017 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 2-3 times a week 06/08/2022 Q2: How many drinks containi ng alcohol do you have on a typical day when you are drinking? 5 or 6 06/08/2022 Q3: How often do you have si x or more drinks on one occasion? 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 Not on file Not on file Last Filed Vital Signs Vital Sign Reading Time Taken Comments Blood Pressure 116/72 06/08/2022 9:45 AM CDT Pulse 89 06/08/2022 9:55 AM CDT Temperature 36 C (96.8 F) 06/08/2022 9:57 AM CDT Respiratory Rate 19 06/08/2022 9:55 AM CDT Oxygen Saturation 94% 06/08/2022 9:55 AM CDT Inhaled Oxygen Concentration - - Weight 76.7 kg (169 lb) 12/31/2022 4:47 PM CDT Height 152.4 cm (5') 12/31/2022 4:47 PM CDT Body Mass Index 33.01 12/31/2022 4:47 PM CDT Plan of Treatment Not on file Medical Devices Implanted Type Area Driving Instructor Device Identifier Shelf Expiration Date Model / Serial / Lot [employer] [id number] Tightrope Acl Right Device Fixation Titanium Uhmwpe Sterile Latex Free - [id number] Implanted:Qty: 1 on 06/05/2019 by Max Green IV, MD at [facility] [place] Right: Knee [employer] 12/05/2023 AR-[id number] / / [id number] [employer] Ar-4020c-09 Screw Fastthread Biocomposite Interference 9mm X 20mm - [id number] Implanted:Qty: 1 on 06/05/2019 by Max Green IV, MD at [facility] Right: Knee [employer] 11/06/2020 AR-4020C-0 9 / / [id number] Synthes Kit Impl [id number] 5.5mm Secod2.5 Bme Elite 9.5mm 2 Leg Bridge - - [id number] Implanted:Qty: 1 on 06/08/2022 by Jorge A Burton MD at [facility] Left: Foot Synthes I [id number] 12/08/2024 - / / [id number] [place] [address] [facility] CHOICE PLUS [facility] HMO/PPO Address: [facility] [address] [place], [place] [id number] [place] [address] [facility] H[facility]/PPO Address: [address] [address] [place] [address] [facility] CHOICE PLUS [facility] HMO/PPO Address: [address] [address] [place] [address] [facility] AETNA SIG [id number] CIGNA OPEN ACCESS CIGNA CIGNA [facility] CHOICE PLUS [facility] HMO/PPO Address: [address] [address] [place] [address] [facility]MR [facility] HMO/PPO Address: [address] [address] [place] [address] [facility] CHOICE PLUS [facility] HMO/PPO Address: [address] [address] [place] [address] Advance Directives For more information, please contact: [phone] * Full Code (Latest Code Status on File) Date Activated Date Inactivated Comments 06/05/2019 2:05 PM 06/05/2019 7:49 PM Care Teams Fence Supervisor Relationship Specialty Start Date End Date Vlad Ohara MD [address] [address] PCP - General 12/26/16 Vlad Ohara MD [address] [facility] [address] [place] [address] 12/26/16
--- OUTSIDE RECORDS SUMMARY | 2024-12-02 16:32 | XMS_ITS | Patient Health Summary ---
Author Organization [facility] Address [address] [place] [address] Care Team Providers Care Tool Grinder Name Role Phone Vlad Ohara Augustina REID Primary Care Provider [phone] Note from [facility],non-owned Affiliates and Associated Physician Practices is amultiple site organization consisting of ambulatory clinics and hospital sitesin [place], [place], [place] and [place]. This disclosure is being madepursuant to the Care Everywhere program and may not contain all information available regarding this patient. Last updated 18.[facility] Immunizations * INFLUENZA VACCINE, QUADR. (FLUZONE; FLULAVAL; FLUARIX; AFLURIA QUADRIVALENT; 6MO+), 0.5 ML (IIV4)(Given 09/04/2020) Social History Tobacco Use Types Packs/Day Years Used Date Smoking Tobacco: Never Assessed Sex and Gender Information Value Date Recorded Sex Assigned at Not on file Gender Identity Not on file Sexual Orientation Not on file Procedures * DERMATOPATHOLOGY(Performed 11/21/2016) * CULTURE BLOOD(Performed 03/30/2014) Results * PATHOLOGY TISSUE FOR DERMATOLOGY (11/21/2016 12:00 AM VP PATIENT) Result CASE: [id number] PATIENT: PATRICIA PATRICIA PATHOLOGIC DIAGNOSIS: A. Left medial cheek: INTRADERMAL MELANOCYTIC NEVUS PRESENT AT MARGIN B. Left outer thigh: DERMATOFIBROMA CLINICAL DATA: A: BCC/nevus. Check margins. B: DF/NMSC. GROSS DESCRIPTION: A: Received is one formalin filled container labeled with the patients name and designated left medial cheek. The specimen consists of a shave measuring [id number]. The margin is inked green. Jar 0. B: Received is one formalin filled container labeled with the patients name and designated left outer thigh. The specimen consists of a punch measuring [id number]. The specimen is bisected and submitted in 1 cassette. Jar 0. MICROSCOPIC DESCRIPTION: SPECIMEN A There are nests of melanocytes within the dermis that mature with depth. This lesion is present at the margin of the specimen. SPECIMEN B Within the dermis, there are fibrohistiocytic cells in haphazard array among coarse collagen bundles. There is overlying epidermal hyperplasia. Electronically signed out by Aisha Lazo M.D., PhD. 11/26/2016 9:59:41AM [facility] Comment: Performed at: Dermatopathology Laboratory [facility] - Department of Dermatology [address] [place] [address] [place] [address] Phone number: [phone] FAX: [phone] 11/21/2016 11/23/2016 Megan Fonseca MD LAB - PATHOLOGY/CYTO LOGY ORDERABLES Performing Organization Address City/[facility]/ZIP Co de Phone Number [facility] [address] [place] [address]. [facility] Floor Lab [address] [phone] * CULTURE BLOOD (03/30/2014 7:08 PM CDT) Culture Blood No Growth at 5 days [facility] Blood specimen (specimen) BLOOD SPECIMEN / Unknown 03/30/2014 7:08 PM CDT 03/30/2014 9:52 PM CDT Narrative [facility] - 04/04/2014 10:00 PM CDT AndersonSpecimen#[id number] Brett Loc/Rm/Bed: ED// Historical Provider LAB - MICROBIOLOG Y ORDERABLES [facility] [address] [place] [address], [facility] [phone] Care Teams Tool Grinder Relationship Specialty Start Date End Date Vlad Ohara DO [address] [facility] [address] [place] [address] PCP - General 04/04/15
--- OUTSIDE RECORDS SUMMARY | 2024-12-02 16:32 | XMS_ITS | Clinical Summary ---
Author Organization [facility] Address [address] [place] [address] Care Team Providers Care Slope Hoist Operator Name Role Phone Mayda Vlad Jackman DO Primary Care Provider Source Comments [facility],non-owned Affiliates and Associated Physician Practices is amultiple site organization consisting of ambulatory clinics and hospital sitesin [place], [place], [place] and [place]. This disclosure is being madepursuant to the Care Everywhere program and may not contain all information available regarding this patient. Last updated 18.[facility] Immunizations Name Administration Dates Next Due INFLUENZA VACCINE, QUADR. (F LUZONE; FLULAVAL; FLUARIX; AFLURIA QUADRIVALENT; 6MO+), 0.5 ML (IIV4) 09/04/2020 Social History Tobacco Use Types Packs/Day Years Used Date Smoking Tobacco: Never Assessed Sex and Gender Information Value Date Recorded Sex Assigned at Not on file Gender Identity Not on file Sexual Orientation Not on file Plan of Treatment Health Maintenance Due Date Last Done Comments COLOGUARD (AGES 45-75) - COL ON CA SCREENING 1963 COLON MONITORING 1963 COLONOSCOPY - COLON CA SCREENING 1963 CT COLONOGRAPHY - COLON CA SCREENING 1963 Colorectal Cancer Screening 1963 FIT - COLON CA SCREENING 1963 FLEX SIG - COLON CA SCREENING 1963 LIPID TESTING 1963 MAMMOGRAM 1963 PAP SMEAR 1963 HIV SCREENING 1978 HEPATITIS C SCREENING 06/24/1981 DTAP/TDAP/TD VACCINES (1 - Tdap) 1982 PNEUMOCOCCAL VACCINE 50+ (1 of 1 - PCV) 2013 ZOSTER VACCINE (1 of 2) 2013 COVID-19 VACCINE (1 - 2023-2 5 season) 2024 INFLUENZA VACCINE (#1) 2024 09/04/2020 DEPRESSION SCREENING 10/07/2024 Respiratory Syncytial Virus (RSV) Vaccine Pt: or over 60 yrs (1 - 1-dose 75+ series) 2038 HEPATITIS B VACCINE Aged Out No longe r eligible based on patient's age to complete this topic HIB VACCINE Aged Out No longer eligi ble based on patient's age to complete this topic HPV VACCINE Aged Out No longer eligi ble based on patient's age to complete this topic MENINGOCOCCAL (Group B) VACCINE Aged Out No longer eligible based on patient's age to complete this topic MENINGOCOCCAL VACCINE Aged Out No carolee tex eligible based on patient's age to complete this topic PNEUMOCOCCAL VACCINE Aged Out No long er eligible based on patient's age to complete this topic Care Teams Slope Hoist Operator Relationship Specialty Start Date End Date Vlad Ohara DO [address] [facility] [address] [place], [place] [id number] PCP - General 04/04/15
--- OUTSIDE RECORDS SUMMARY | 2024-12-02 16:32 | XMS_ITS | Clinical Summary ---
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 Active pen needle, diabetic 30 [...] (03/22/2022): Added automatically from request for surgery [id number] Chondromalacia of medial femoral condyle, right 07/15/2019 Effusion of right knee 07/15/2019 Argueta's cyst of knee, right 07/13/2019 Complete tear of right ACL, subsequent encounter 05/25/2019 Overview (05/25/2019): Added automatically from request for surgery [id number] Tear of medial meniscus of right knee, current 0 05/25/2019 Overview (05/25/2019): Added automatically from request for surgery [id number] Trigeminal neuralgia 08/14/2018 Pain of foot 08/07/2017 Osteoarthritis of foot 01/30/2017 Immunizations Immunization Administration Dates Next Due Influenza, Quadrivalent, Spl it, Preservative Free, Intramuscular 09/04/2020 Moderna SARS-CoV-2 Monovalent Vaccination (12+ Y RS) 11/26/2020 Surgical History Surgery Date Site/Laterality Comments TONSILLECTOMY 10/07/1994 - 10/06/1995 APPENDECTOMY 10/07/2016 - 10/06/2017 CHOLECYSTECTOMY 10/07/2001 - 10/06/2002 FOOT SURGERY Right unsure on date FL FLUORO GUIDED ASPIRATION OR INJECTION INTERMEDIATE JOINT BILATERAL 10/22/2018 Bilateral FLUORO GUIDED ASPIRATION OR INJECTION INTERMEDIATE JOINT LEFT 04/30/2019 Left LIPOSUCTION 10/07/2017 - 10/06/2018 FLUORO GUIDED ASPIRATION OR INJECTION INTERMEDIATE JOINT LEFT 03/22/2020 Left FLUORO GUIDED INJECTION ANKL E LEFT 12/23/2020 Left FLUORO GUIDED INJECTION ANKL E LEFT 05/16/2021 Left FLUORO GUIDED INJECTION ANKL E LEFT 09/22/2021 Left FLUORO GUIDED INJECTION ANKL E LEFT 03/01/2022 Left KNEE ARTHROSCOPY W/ ACL RECONSTRUCTION 06/05/2019 Right Peter IMPLANT unsure on date COLONOSCOPY Multiple-- Last ~2018 Medical History Medical History Date Comments Diverticulitis of colon Depression Situational grie f after father's 2014 Hyperlipidemia Treated with sta tin Hypertension Dxd ~1999--well controlled Irritable bowel syndrome Hypothyroidism Trigeminal neuralgia no flare u p in 2-3 years, not currently taking meds Sleep apnea Wears CPAP night ly at 12 cm H2O Obesity Family History Medical History Relation Name Comments Arthritis Father Family history of arthritis - (Added by TW Conv) Depression Father Diabetes Father Family history of diabetes mellitus - (Added by TW Conv) Heart disease Father Family history of cardiac disorder - (Added by TW Conv) Hypertension Father Family history of hypertension - (Added by TW Conv) Depression Mother Hypertension Mother Family history of hypertension - (Added by TW Conv) Memory loss Mother Diabetes type II Other 1 Family hist ory of Diabetes mellitus type 2; Cancer Other 2 Family history of Cancer, unknown; Gout Other 3 Family history of Gout; Hypertension Other 4 Family history of Hypertension; Stroke Other 5 Family history of Stroke; Heart disease Other 6 Family history of Heart disease; Arthritis Other 7 Family history of Arthritis; Depression Sister Diabetes Sister Anesthesia problems Neg Hx Relation Name Status Comments Father Mother Other 1 Other 2 Other 3 Other 4 Other 5 Other 6 Other 7 Sister Social History Tobacco Use Types Packs/Day Years [...] on file Legal Sex Female 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 Not on file Not on file Obstetrics History Last Filed Vital Signs Vital Sign Reading [...] 12/31/2022 4:47 PM CDT Plan of Treatment Health Maintenance Due Date Last Done Comments Breast Cancer Screening-Mammogram 1963 Cervical Cancer Screening 1963 Colon Cancer Screening-Colonoscopy 1963 Depression Screening 1963 Hepatitis C Screening 1963 DTaP/Tdap/Td Vaccine (1 - Tdap) 1974 Hepatitis B Screening 1981 Regular Well Visit/Exam 18-64 1981 Zoster Vaccine (1 of 2) 2013 Covid-19 Vaccine (4 - 2023-2 5 season) 2024 03/12/2022, 12/24/2020, 11/26/2020 Influenza Vaccine (#1) 2024 09/04/2020 Pneumococcal vaccine <65 Aged Out No longer eligible based on patient's age to complete this topic Medical Devices Implanted Type Area Credit Administration Manager Device Identifier Shelf Expiration Date Model / Serial / Lot [employer] [id number] Tightrope Acl Right Device Fixation Titanium Uhmwpe Sterile Latex Free - [id number] Implanted:Qty: 1 on 06/05/2019 by Max Green IV, MD at [facility] Right: Knee [employer] 12/05/2023 AR-[id number] / / [id number] [employer] Ar-4020c-09 Screw Fastthread Biocomposite Interference 9mm X 20mm - [id number] Implanted:Qty: 1 on 06/05/2019 by Max Green IV, MD at [facility] Right: Knee [employer] 11/06/2020 AR-4020C-0 9 / / [id number] Synthes Kit Impl 68s10xo 5.5mm Secod2.5 Bme Elite 9.5mm 2 Leg Bridge -2019s2 - [id number] Implanted:Qty: 1 on 06/08/2022 by Jorge A Burton MD at [facility] Left: Foot Synthes I [id number] 12/08/2024 EL-2020S2 / / [id number] Insurance [facility] CHOICE PLUS Member Subscriber Plan / Payer (Ef fective 2018-Present) Name:Patricia Waggoner Relation to Subscriber:Self Name:Patricia Waggoner Payer ID:[id number] (NAIC) Type:[facility] HMO/PPO Address: [address] [place] [address] [place] [address] [facility] CHOICE PLUS [facility] AETNA SIG [id number] [place] [address] [employer] [facility] [place] [address] [facility] CHOICE PLUS Advance Directives For more information, please contact: [phone] * Full Code (Latest Code Status on File) Date Activated Date Inactivated Comments 06/05/2019 2:05 PM 06/05/2019 7:49 PM Care Teams Kitchen Work Supervisor Relationship Specialty Start Date End Date Vlad Ohara MD [address] [address] [facility] - General 12/26/16 Vlad Ohara MD [address] [facility] [address] [place] [address] 12/26/16
--- OUTSIDE RECORDS SUMMARY | 2024-12-02 16:32 | XMS_ITS | Referral Summary ---
Author Organization [facility] Address [address] [place] [address] Care Team Providers Care Family Educator Name Role Phone Harsha Oharajames Jackman DO Primary Care Provider [phone] Source Comments [facility],non-owned Affiliates and Associated Physician Practices is amultiple site organization consisting of ambulatory clinics and hospital sitesin [place], [place], [place] and [place]. This disclosure is being madepursuant to the Care Everywhere program and may not contain all information available regarding this patient. Last updated 18.[facility] Immunizations Name Administration Dates Next Due INFLUENZA VACCINE, QUADR. (F LUZONE; FLULAVAL; FLUARIX; AFLURIA QUADRIVALENT; 6MO+), 0.5 ML (IIV4) 09/04/2020 Social History Tobacco Use Types Packs/Day Years Used Date Smoking Tobacco: Never Assessed Sex and Gender Information Value Date Recorded Sex Assigned at Not on file Gender Identity Not on file Sexual Orientation Not on file Plan of Treatment Not on file Care Teams Family Educator Relationship Specialty Start Date End Date Vlad Ohara DO [address] [facility] [address] [place] [address] PCP - General 04/04/15
--- OUTSIDE RECORDS SUMMARY | 2024-12-02 16:32 | XMS_ITS | Data Portability ---
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 Plan of Treatment Reminders Order Date Submit Date Provider Last Modified By Organization Details Last Modified Time Details Appointments None recorded. Lab pap, LB 2023 024 [facility], [address] [place], [address], 4 15:22:01 testostero ne, free + total, serum 2022 023 [facility], [address] [place], [address], 3 12:32:11 lh + FSH, serum 2022 023 [facility] [facility], [address] [place] [address], [address], 3 14:02:10 estradiol, serum 2022 023 [facility], [address] [place], [address], 3 12:32:11 Referral None recorded. Procedures None recorded. Surgeries None recorded. Imaging MAMMO, screening, digital, bilateral 2023 024 kbritsch Not available 4 17:09:52 MAMMO, screening, digital, bilateral 2021 022 [email or web address] Not available 2 16:17:44 Medication Orders phentermin e 37.5 mg tablet 2023 024 [facility][id number], [address], [id number], 4 10:45:32 Wegovy 0.25 mg/0.5 mL subcutaneo us pen injector 2022 023 [facility], [address] [facility], [place], [address], 4 10:01:40 Wegovy 0.5 mg/0.5 mL subcutaneo us pen injector 2022 023 [email or web address] [facility], [address] [facility], [place], [address], 4 10:01:44 phentermin e 37.5 mg tablet 2022 023 [facility]96182, [address], [id number], 3 15:26:24 estradiol 10 mcg vaginal tablet 2021 022 trevor [address] [facility] #48705, [address], [id number], 3 14:34:54 Saxenda 3 mg/0.5 mL (18 mg/3 mL) subcutaneo us pen injector 2021 022 [facility] [address] [facility] #[id number], [address], [id number], 3 14:34:00 Patient TargetsNo targets recorded. Patient Instructions Encounter Date Encounter Id Patient Instructions Last Modified By Organization Details Last Modified Time 05/14/2022 [id number] atrophic vaginitis: care instructions Not available 05/14/2022 12:12:57 Patient Health Questionnaire-9* [email or web address] Not available 05/22/2022 10:23:24 eating healthy foods: care instructions Not available 05/14/2022 11:08:04 general health care education Not available 05/14/2022 11:08:04 weight managemen t education Not available 05/14/2022 11:08:04 mammogram: about this test Not available 05/14/2022 11:08:04 body mass index: care instructions Not available 05/14/2022 12:12:57 learning about healthy weight Not available 05/14/2022 12:12:57 01/22/2024 [id number] body mass index: care instructions Not available 01/22/2024 10:45:22 mammogram: about this test Not available 01/22/2024 10:45:22 Reason for Referral None Reported. Results Created Date Observation Date Name Description Value Unit Range Abnormal Flag Note LastModifiedBy Organization Detail LastModifiedTime 12/24/1912/23/2022 ESTRA DIOL estradiol <15 pg/mL normal Refer ence Range Folli cular Phase : 19-14 4 Mid-C ycle: 64-35 7 Lutea l Phase : 56-21 4 Postm enopa usal: < or = 31 Refer ence range estab lishe d on post- puber lucio patie nt popul ation . No pre-p ubert al refer ence range estab lishe d using this assay . For any patie nts for whom low Estra diol level s are antic ipate d (e.g. males , pre-p ubert al child arash and hypog onada l/pos t-men opaus al femal es), the [facility] Estra diol, Ultra sensi tive, LCMSM S assay is recom delano dawkins (orde r code [id number] ). Pledonna e note: patie nts being treat ed with the drug fulve stran t (Fasl odex( R)) have demon strat ed signi fican t inter feren ce in immun oassa y metho ds for estra diol measu remen t. The cross react ivity could lead to false ly eleva vida estra diol test resul ts leadi ng to an inapp ropri ate clini ashish asses sment of estro gen statu s. [facility] order code [id number] -Estr adiol , Ultra sensi tive LC/MS /MS demon strat es negli gible cross react ivity with fulve stran t. Not Available [facility] [address] [place], [address], 12/23/2022 12:32:10 12/24/19 23 12/23/2022 TESTO STERO NE, FREE (DIAL YSIS) AND TOTAL ,MS testosterone , total, MS 15 NG/dL 2-45 For addit ional infor tee colunga refer to https ://ed ati on.qu estFeedzai. com/f aq/FA Q165 (This link is being provi ded for infor matio nal/e ducat ional purpo ses only. ) (Note ) This test was devel oped and its levar tical perfo rmanc e bradly cteri stics have been deter mined by [employer]. It has not been clear ed or appro javad by the FDA. This assay has been valid ated pursu ant to the CLIA regul ation s and is used for clini ashish purpo ses. Not Available [facility] [address], [place], [address], 12/23/2022 12:32:11 12/24/19 23 12/23/2022 TESTO STERO NE, FREE (DIAL YSIS) AND TOTAL ,MS testosterone , free 3.1 pg/mL 0.1-6. 4 (Note ) This test was devel oped and its levar tical perfo rmanc e bradly cteri stics have been deter mined by [employer]. It has not been clear ed or appro javad by the FDA. This assay has been valid ated pursu ant to the CLIA regul ation s and is used for clini ashish purpo ses. F med fusio n [address] [facility] [address] [place] [address] [phone] Homero rosa MD NO COLLE CTION DATE RECEI JAVAD. WE HAVE USED THE DATE THE SPECI MEN WAS RECEI JAVAD BY THIS LABOR ATORY THE COLLE CTION DATE. IF THIS IS INCOR RECT, PLEAS E CONTA CT CLIEN T SERVI FLORECITA. PHONE SHARIE R: [phone] Not Available [facility] [address] [address] [place], [address], 12/23/2022 12:32:11 01/28/20 24 01/28/2024 THINP REP TIS PAP clinical information: normal None given Not Available [facility] [address] [place], [address], 01/28/2024 15:22:01 01/28/20 24 01/28/2024 THINP REP TIS PAP LMP: normal NONE GIVEN Not Available [facility] [address] [place], [address], 01/28/2024 15:22:01 01/28/20 24 01/28/2024 THINP REP TIS PAP prev. Pap: normal NONE GIVEN Not Available [facility] [address] [place], [address], 01/28/2024 15:22:01 01/28/20 24 01/28/2024 THINP REP TIS PAP prev. BX: normal NONE GIVEN Not Available [facility] [address] [address] [place], [address], 01/28/2024 15:22:01 01/28/20 24 01/28/2024 THINP REP TIS PAP source: normal None given Not Available [facility] [address] [address] [place], [address], 01/28/2024 15:22:01 01/28/20 24 01/28/2024 THINP REP TIS PAP statement of adequacy: normal SATIS FACTO RY FOR EVALU ATION Not Available [address] [address] [place], [address], 01/28/2024 15:22:01 01/28/20 24 01/28/2024 THINP REP TIS PAP interpretati on/result: normal Cytol ogy Resul ts: Negat india for intra epith elial lesio n or malig negro . Not Available [address] [address] [place], [address], 01/28/2024 15:22:01 01/28/20 24 01/28/2024 THINP REP TIS PAP comment: normal This Pap test has been evalu ated with sada norman techn ology . Not Available [address] [address] [place], [address], 01/28/2024 15:22:01 01/28/20 24 01/28/2024 THINP REP TIS PAP cytotechnolo gist: normal CBN, CT( CP) CT Scree venecia locat ion: [facility] [place] [address] [place] [address] Not Available [address] [address] [place], [address], 01/28/2024 15:22:01 01/28/20 24 01/28/2024 THINP REP TIS PAP review cytotechnolo gist: normal ESW, CT( CP) CT Scree venecia Locat ion: [facility] [place] [address] [facility] [place] [address] Not Available [address] [address] [place], [address], 01/28/2024 15:22:01 01/28/20 24 01/28/2024 THINP REP TIS PAP comment EXPLA NATOR Y NOTE: The Pap is a scree venecia test for cervi ashish cance r. It is not a diagn ostic test and is subje ct to false negat india and false posit india resul ts. It is most relia ble when a satis facto ry sampl e, regul deborah obtai velma, is submi tted with relev ant clini ashish findi ngs and histo ry, and when the Pap resul t is evalu ated along with histo hermilo and curre nt clini ashish infor matio n. NO COLLE CTION DATE RECEI JAVAD. WE HAVE USED THE DATE THE SPECI MEN WAS RECEI JAVAD BY THIS LABOR ATORY THE COLLE CTION DATE. IF THIS IS INCOR RECT, PLEAS E CONTA CT CLIEN T SERVI FLORECITA. PHONE NUMBE R: [phone] Not Available [employer] [facility] [address] [place], [address], 01/28/2024 15:22:01 12/20/19 23 12/20/2022 FSH AND LH FSH 53.4 mIU/m L Refer ence Range s are for femal es aged 18 years - Adult Adina l Menst ruati ng Femal e: Folli cular phase : 2.5-1 0.2 mIU/m L Mid-C ycle Peak: 3.4-3 3.4 mIU/m L Lutea l phase : 1.5-9 .1 mIU/m L Pregn ant: <0.3 mIU/m L Post- menop ausal : 23.0- 116.6 mIU/m L Not Available [address], [address], 12/20/2022 14:02:10 12/20/19 23 12/20/2022 FSH AND LH LH 20.15 U/L Refer ence Range s are for femal es aged 18 years - Adult Adina l Menst ruati ng Femal e: Folli cular phase : 1.9-1 2.5 mIU/m L Mid-C ycle Peak: 8.7-7 6.3 mIU/m L Lutea l phase : 0.5-1 6.9 mIU/m L Pregn ant: <0.1- 1.5 mIU/m L Post- menop ausal : 15.9- 54.0 mIU/m L Contr acept alvin: 0.7-5 .6 mIU/m L Not Available [facility] [address] [place], [address], 12/20/2022 14:02:10 Result Notes None recorded. Problems Name Problem SNOMED Code Status Onset Date Resolution Date Notes Provider Name and Address Organization Details Recorded Time Atrophic vaginitis 72661530 Active 022 IAM Alexis [address] [place], [address] , [facility] [employer] [facility] 12:12:32 Problem Notes None recorded. Procedures Surgical History Date Name Laterality Status Provider Name and Address Organization Details Recorded Time 023 Most Recent Mammogram completed Leigh Ann Mg [facility] 01/22/2024 09:56:30 022 completed [facility] 05/14/2022 10:42:56 020 Date of Last Pap Smear completed IAM Alexis [address] [place], [address], [facility] 05/14/2022 09:54:11 Appendectomy completed Melodie [employer] [facility] 05/13/2022 00:32:22 cholecystectomy completed Melodie [employer] [facility] 05/13/2022 00:32:42 Hysteroscopy ablation completed Melodie [employer] [facility] 05/13/2022 00:32:51 tonsillectomy and adenoidectomy completed Melodie Pietrusiak [facility] 05/13/2022 00:33:00 reconstruction of anterior cruciate ligament of knee joint completed Melodie Pietrusiak [facility] 05/13/2022 00:33:08 Gall bladder completed Trudy Britsch [facility] 05/14/2022 10:44:22 Colonoscopy completed [employer] [facility] 05/14/2022 10:44:22 operative procedure on knee completed Trudy Britsch [facility] 05/14/2022 10:45:09 Hysteroscopy ablation completed Leigh Ann Mg [facility] [employer] [facility] 01/22/2024 10:06:34 Imaging Results None recorded. Procedure Notes None recorded. Medical Equipment None Reported. Allergies Allergen ID Allergen Name Allergen Category Reaction Reaction Severity Criticality Documentation Date Start Date Code Code System Note Provider Name and Address Organization Details Recorded Time 869245 tetracycl ine medicatio n Not available Not available Not available 07/28/20212019 41273 RxNorm Sever ity: Moder ate; Not Available Not Available Not Available Medications Name Sig Start Date Stop Date Status Note LastModified by Organization Details LastModified Time prednison e 10 mg tablet TAKE 1 TABLET BY MOUTH TWICE DAILY FOR 10 DAYS active Not Available Not Available No t Available atorvasta tin 20 mg tablet TAKE 1 TABLET BY MOUTH DAILY active Not Available Not Available No t Available triazolam 0.25 mg tablet TAKE 2 TABLETS BY MOUTH 90 MINUTES BEFORE APPOINTM ENT 12/19 completed Not Available Not Available Not Available trazodone 50 mg tablet active Not Available Not Available Not Available hydrocodo ne 5 mg-acetam inophen 325 mg tablet TAKE 1 TABLET BY MOUTH EVERY 4 TO 6 HOURS NEEDED FOR PAIN 12/19 completed Not Available Not Available Not Available senna 8.6 mg tablet TAKE 1 TABLET BY MOUTH DAILY 12/19 completed Not Available Not Available Not Available promethaz ine 12.5 mg tablet 12/19 completed Not Available Not Available Not Available lisinopri l 20 mg tablet take 1 tablet (20 mg) by oral route once daily active Not Available Not Available No t Available simvastat in 10 mg tablet take 1 tablet (10 mg) by oral route once daily in the evening 12/19 completed simvasta tin 10 mg oral tablet RxNorm: [id number] Allow Substitu tion: False Refill Denied: No Refill DateOccu rred: 03/23/20 Edited by: Boston Lockett ) on 03/23/20 20 Stopped by: Boston Lockett ) on Not Available Not Available Not Available metronida zole 500 mg tablet TAKE 1 TABLET BY MOUTH EVERY 8 HOURS 05/14 completed Not Available Not Available Not Available phentermi ne 37.5 mg tablet TAKE 1/2 TABLET BY MOUTH TWICE DAILY active Not Available Not Available No t Available ciproflox acin 500 mg tablet TAKE 1 TABLET BY MOUTH EVERY 12 HOURS 05/14 completed Not Available Not Available Not Available tramadol 50 mg tablet TAKE 1 TABLET BY MOUTH EVERY 6 HOURS NEEDED FOR PAIN 01/21 completed Not Available Not Available Not Available ketorolac 10 mg tablet 12/19 completed Not Available Not Available Not Available carbamaze pine 200 mg tablet 05/14 completed Not Available Not Available Not Available aspirin 325 mg tablet,de layed release 12/19 completed Not Available Not Available Not Available cephalexi n 500 mg capsule TAKE ONE CAPSULE BY MOUTH EVERY 6 HOURS 01/21 completed Not Available Not Available Not Available Synthroid 50 mcg tablet take 1 tablet (50 mcg) by oral route once daily active Not Available Not Available No t Available felodipin e ER 10 mg tablet,ex tended release 24 hr take 1 tablet (10 mg) by oral route once daily active Not Available Not Available No t Available alcohol swabs USE EVERY DAY 12/19 completed Not Available Not Available Not Available zolpidem 10 mg tablet TAKE 1 TABLET BY MOUTH EVERY DAY AT BEDTIME active Not Available Not Available No t Available testoster one 1 % (25 mg/2.5 gram) transderm al gel packet active Not Available Not Available Not Available estradiol 0.0375 mg/24 hr semiweekl y transderm al patch UNWRAP AND APPLY 1 PATCH TO SKIN AND CHANGE PATCH TWICE WEEKLY active Not Available Not Available No t Available ondansetr on 4 mg disintegr ating tablet 12/19 completed Not Available Not Available Not Available metformin ER 500 mg tablet,ex tended release 24 hr TAKE 2 TABLET BY MOUTH TWICE DAILY 01/21 completed Not Available Not Available Not Available progester one micronize d 100 mg capsule TAKE 1 CAPSULE BY MOUTH DAILY active Not Available Not Available No t Available escitalop yessenia 10 mg tablet take 1 tablet (10 mg) by oral route once daily 01/21 completed Not Available Not Available Not Available escitalop yessenia 20 mg tablet TAKE 1 TABLET BY MOUTH DAILY active Not Available Not Available No t Available diltiazem ER 120 mg tablet,ex tended release 24 hr TAKE 1 TABLET BY MOUTH DAILY active Not Available Not Available No t Available estradiol 0.0375 mg/24 hr weekly transderm al patch apply 1 patch by transder mal route once weekly 05/14 completed estradio L 0.0375 mg/24 hr Transder mal Patch, Transder mal Weekly RxNorm: [id number] Allow Substitu tion: True Refill Denied: No Edited by: Boston Lockett ) on 04/15/20 20 Stopped by: jaime(Boston Morales ) on Not Available Not Available Not Available cholestyr amine (with sugar) 4 gram powder for susp in a packet active Not Available Not Available Not Available eszopiclo ne 3 mg tablet TAKE 1 TABLET BY MOUTH EVERY DAY AT BEDTIME active Not Available Not Available No t Available FreeStyle Lite Meter kit USE DIRECTED active Not Available Not Available No t Available FreeStyle Lite Strips USE DIRECTED TO CHECK BLOOD SUGAR TWICE DAILY active Not Available Not Available No t Available compounde d medicatio n Use 1.5mg/da y 01/21 completed Called in to Mar[facility] at [facility] for 1mo and 5 refills. Not Available Not Available Not Available Novofine 32 32 gauge x 1/4 needle USE WITH SAXENDA 12/19 completed Not Available Not Available Not Available estradiol 10 mcg vaginal tablet INSERT 1 TABLET VAGINALL Y 2 TIMES A WEEK FOR 14 DAYS 12/19 completed Not Available Not Available Not Available Jardiance 10 mg tablet active Not Available Not Available Not Available Saxenda 3 mg/0.5 mL (18 mg/3 mL) subcutane ous pen injector Start 0.6 mg SC daily for 1 week, then increase at weekly interval s to 3 mg daily 12/19 completed Not Available Not Available Not Available Ozempic 0.25 mg or 0.5 mg (2 mg/1.5 mL) subcutane ous pen injector 0.25mg q week x 4 then 0.5mg q week x 6 2022 active Not Available Not Available Not Avai lable OneTouch Ultra2 Meter USE TO TEST DAILY 12/19 completed Not Available Not Available Not Available OneTouch Delica Plus Lancet 33 gauge TEST EVERY DAY 12/19 completed Not Available Not Available Not Available ID NOW COVID-19 Test Kit TEST DIRECTED TODAY 05/14 completed Not Available Not Available Not Available Ozempic 1 mg/dose (4 mg/3 mL) subcutane ous pen injector ADMINIST ER 1 MG UNDER THE SKIN WEEKLY active Not Available Not Available No t Available Wegovy 0.25 mg/0.5 mL subcutane ous pen injector Inject 0.25 mg every week by subcutan eous route in the morning. 01/21 completed Not Available Not Available Not Available Wegovy 0.5 mg/0.5 mL subcutane ous pen injector Inject 0.5 mg every week by subcutan eous route in the morning. 01/21 completed Not Available Not Available Not Available Flowflex COVID-19 Antigen Home Test kit active Not Available Not Available Not Available Lagevrio 200 mg capsule (EUA) TAKE 4 CAPSULES BY MOUTH EVERY 12 HOURS FOR 5 DAYS active Not Available Not Available No t Available Ozempic 0.25 mg or 0.5 mg (2 mg/3 mL) subcutane ous pen injector INJECT 0.25MG ONCE WEEKLY FOR 4 WEEKS. THEN INCREASE TO 0.5MG ONCE WEEKLY active Not Available Not Available No t Available Vitals Date Recorded Body weight Body temperature Body mass index (BMI) Body height Systolic blood pressure Diastolic blood pressure Provider Name and Address Organization Details Last Updated DateTime 2 01389.4 8 g 97.6 [degF] 33.8 kg/m2 152.4 cm 126 mm[Hg] 80 mm[Hg] Trudy Florentino [facility] 2 10:38:16 Date Recorded Body height Body mass index (BMI) Body weight Body temperature Systolic blood pressure Diastolic blood pressure Provider Name and Address Organization Details Last Updated DateTime 3 152.4 cm 35.5 kg/m2 96947.3 7 g 97.4 [degF] 120 mm[Hg] 74 mm[Hg] Salma Mcdaniel [place] [facility] 3 14:32:32 Date Recorded Body height Body mass index (BMI) Body weight Body temperature Systolic blood pressure Diastolic blood pressure Provider Name and Address Organization Details Last Updated DateTime 4 152.4 cm 33.9 kg/m2 33480.9 2 g 97.1 [degF] 140 mm[Hg] 74 mm[Hg] Leigh Ann Mg [facility] 10:01:24 Social History Question Answer Notes LastModified by Organizat ion Details LastModified Time Tobacco Smoking Status Never Smoker Trudy Florentino null, [facility] 05/14/2022 10:43:41 What Is Your Level Of Alcohol Consumption? Moderate Information not available 05/14/2022 How Many Times Per Week Do You Consume Alcohol? 1-2 Times Per Week Information not available 01/22/2024 How Many Years Have You Consumed Alcohol? 30 Information not available 05/14/2022 Are You Blind Or Do You Have Difficulty Seeing? No Information not available 05/14/2022 Are You Currently Employed? Yes Information not available 01/22/2024 Are You Deaf Or Do You Have Serious Difficulty Hearing? Yes Information not available 01/22/2024 What Type Of Diet Are You Following? REGULAR Information not available 01/22/2024 Do You Or Have You Ever Used E-cigarettes Or Vape? Never Used Electronic Cigarettes Information not available 05/14/2022 What Is The Highest Grade Or Level Of School You Have Completed Or The Highest Degree You Have Received? [id number] Information not available 01/22/2024 What Is Your Occupation? [employer] Information not available 01/22/2024 How Many Children Do You Have? 4 Information not available 05/14/2022 What Is Your Relationship Status? Information not available 05/14/2022 Are You Sexually Active? Yes Information not available 05/14/2022 What Types Of Sporting Activities Do You Participate In? Hikingn Walking Stationary Bike Information not available 01/22/2024 Do You Use Any Illicit Or Recreational Drugs? No Information not available 05/14/2022 Have You Used IV Drugs? No Information not available 01/22/2024 Do You Or Have You Ever Used Any Other Forms Of Tobacco Or Nicotine? No Information not available 05/14/2022 Sex: Unknown Functional Status Question Answer Note LastModified by Organization D etails LastModified Time What is your exercise level? Moderate Information not available 05/14/2022 Mental Status None recorded. Family History Relationship Description Onset Age of this Age Resolved Age Notes LastModified by Organization Details LastModified Time Father No current problems or disability [email or web address] Not available 04/2022 00:33:17 Father Hypercholest erolemia kbritsch Not available 2021 10:44:20 Father Depressive disorder kbritsch Not available 2021 10:44:20 Father Myocardial infarction kbritsch Not available 05/14 10:44:20 Father Diabetes mellitus kbritsch Not available 2021 10:44:20 Father Hypertensive disorder kbritsch Not available 2021 10:44:20 Mother No current problems or disability [email or web address] Not available 04/2022 00:33:17 Mother Hypertensive disorder kbritsch Not available 2021 10:44:20 Mother Hypothyroidi sm kbritsch Not available 2021 10:44:20 Mother Hypercholest erolemia kbritsch Not available 2021 10:44:20 Maternal Grandmother Cerebrovascu lar accident kbritsch Not available 05/2022 10:44:20 Maternal Grandmother Hypercholest erolemia kbritsch Not available 2021 10:44:20 Maternal Grandmother Hypertensive disorder kbritsch Not available 2021 10:44:20 Maternal Grandmother Heart disease kbritsch Not available 2021 10:44:20 Paternal Grandfather Malignant tumor of lung kbritsch Not available 2021 10:44:20 Paternal Grandfather Hypercholest erolemia kbritsch Not available 2021 10:44:20 Paternal Grandfather Diabetes mellitus kbritsch Not available 2021 10:44:20 Paternal Grandfather Hypertensive disorder kbritsch Not available 2021 10:44:20 Maternal Grandfather Hypertensive disorder kbritsch Not available 2021 10:44:20 Maternal Grandfather Cerebrovascu lar accident kbritsch Not available 05/2022 10:44:20 Maternal Grandfather Hypercholest erolemia kbritsch Not available 2021 10:44:20 Maternal Grandfather Heart disease kbritsch Not available 2021 10:44:20 Paternal Grandmother Diabetes mellitus kbritsch Not available 2021 10:44:20 Paternal Grandmother Hypertensive disorder kbritsch Not available 2021 10:44:20 Paternal Grandmother Myocardial infarction kbritsch Not available 05/14 10:44:20 Paternal Grandmother Hypercholest erolemia kbritsch Not available 2021 10:44:20 Sister Depressive disorder kbritsch Not available 2021 10:44:20 Sister Hypertensive disorder kbritsch Not available 2021 10:44:20 Sister Hypercholest erolemia kbritsch Not available 2021 10:44:20 Sister Diabetes mellitus kbritsch Not available 2021 10:44:20 Medical History Condition Response Other Cancer N High Blood Pressure Y Colon Cancer N Cytomegalovirus N Hyperthyroidism N MRSA N Blood Transfusion N Herpes (HSV) N Breast Cancer N Lung Cancer N Depression N Hypothyroidism Y Incontinence N Panic Attacks N Neurological Disorder N Deep Vein Thrombosis N Anxiety Disorder N Autoimmune disease N Arthritis Y Shingles N Tuberculosis/Positive PPD N Polycystic Ovarian Syndrome N Cervical Cancer N Chlamydia N Hematuria N Stroke N Varicosities N Seasonal allergies N Crohn's Disease N Alzheimer's/Dementia N COPD/Emphysema N Endometriosis N HPV/Genital Warts N IBS (Irritable Bowel Syndrome) N History of Abnormal Pap N High Cholesterol Y Liver Disease N Kidney Infection N Fibromyalgia N Ulcer N Kidney Disease N HIV N Gallbladder disease N Von Willebrand disease N Sickle Cell Disease/Trait N ADD/ADHD N Eating Disorder N Diabetes Mellitus (non-insulin dependent ) N Anemia N Ovarian Problems N Multiple Sclerosis N Gonorrhea N Frequent Urinary Tract infections N Osteopenia N Headaches/migraines N GERD (reflux) N Ovarian Cancer N Diabetes (insulin dependent) N Seizures/Epilepsy N Fibroids N Asthma N Heart Attack N Endometrial Cancer N Lupus N Rubella N Blood Clotting Disorder N Bipolar Disorder N Diabetes Mellitus (during ) N Ulcerative Colitis N Hepatitis N Heart Disease N Pulmonary Embolism N RPR N Chicken Pox N Osteoporosis N Gynecological History Statement/Question Response Date of Last Colonoscopy Date of LMP 10/07/2009 Most Recent Bone Density HPV Vaccine N Date of Last Pap Smear 03/29/2020 Most Recent Mammogram 02/04/2023 Current Control Method Partner Vas ectomy Age at Menarche 12 03/05/2022 Obstetrics History GPAL:G 4 P 4 0 0 4 Type Value Full Term 4 Living 4 Total 4 Past Encounters Encounter ID Performer Location Encounter Start Date Encounter Closed Date Diagnosis/Indication Diagnosis SNOMED-CT Code Diagnosis ICD10 Code Diagnosis Note [id number] IAM Alexis [facility] [address] [place] [address] 05/14/2022 10:18:41 05/14/2022 13:59:50 Gynecologic examination 94851112 Z01.419 WWE completedP ap - up-to-date Encouraged monthly SBEs, healthy diet, regular exercise, probiotics CBE nml; mammogram order givenColon oscopy- up-to-date Routine labs by PCPDepress ion screening- negObesity - discussed diet, exercise, required calorie intake to lose 1 lb/week. Recommend use of [employer] gabriella. Discussed weight loss medication - saxenda vs contrave vs orlistat vs phentermin e. R/Bof each reviewed. Asking to try saxenda- reviewed side effects, black box warning , andadminis tration; rx sent. f/u in 1 month.Vagi nal dryness- discussed OTC vaginal moisturize rs and vaginal estrogen- desires vaginal estrogen; rxsent Screening for malignant neoplasm of breast 518533281 Z12.39 Depression screening 171 165088 Z13.31 Menopause present 342162 006 N95.1 Body mass index 30+ - obesity 442508884 Z68.33 Atrophic vaginitis 17528 000 N95.2 [id number] Con Duran MD [facility] [address] [place] [address] 12/19/2022 14:24:47 12/19/2022 16:27:50 Body mass index 30+ - obesity 022894308 Z68.33 COUNSELING was provided today regarding the following topics: healthy eating habits. Patient education given on weight management ., regular exercise. Patient handout given on Fitness, crossfit exercise emphasized . Instructed to strictly limit food calories to 12 oz/day and processed starches., and Instructed to stop the prescribed medication immediatel y if you experience chest pain or shortness of breath.. RECOMMENDA TIONS given include: a graduated exercise program ( 4-5 days per week ), stress reduction, You should follow the recommenda tions for fluid calories, limit processed starches, and diet caloric intake recommenda tions., and Encouraged at least 6 hours of sleep per night.. stressed importance of weight loss. Download cognitive therapy APPs (CBT Dehydrator Operator, Julianne) FOLLOW-UP: Schedule a follow-up visit in 1 month. Prediabetes 038657340 R7 3.03 Past pregn ailyn history of gestational diabetes mellitus 730689030 Z86.32 Menopausal symptom 79905 002 N95.1 discussed vivelle .0375 and 100 mg prometrium and 1.5 mg testostero ne [id number] Con Duran MD [facility] [address] [place] [address] 01/22/2024 09:53:28 01/22/2024 12:49:23 Gynecologic examination 47634853 Z01.89 y.o. here for annual exam. - Pap up to date from , discussed natural course of HPV infection, no new exposures. Plan to repeat cotesting in years. - Routine labs done with PCP - Mammo last year WNL, discussed different guideline recommenda tions, pt without family hx, would like to proceed with q2yr screening, repeat next year // rx provided - Colonoscop y done, can continue q10 years screens - DEXA at age 65 or after 50 if you have risk factors for osteoporos is - Depression screen NEG - BMI counseling , diet and exercise reviewed - RTO for annual or PRN Screening for malignant neoplasm of cervix 649687541 Z12.4 Screening for malignant neoplasm of breast 059783766 Z12.31 Depression screening 171 350233 Z13.31 refer to intake screening Body mass index 30+ - obesity 850733678 Z68.33 COUNSELING was provided today regarding the following topics: healthy eating habits. Patient education given on weight management ., regular exercise. Patient handout given on Fitness, crossfit exercise emphasized . Instructed to strictly limit food calories to 12 oz/day and processed starches., and Instructed to stop the prescribed medication immediatel y if you experience chest pain or shortness of breath.. RECOMMENDA TIONS given include: a graduated exercise program ( 4-5 days per week ), stress reduction, You should follow the recommenda tions for fluid calories, limit processed starches, and diet caloric intake recommenda tions., and Encouraged at least 6 hours of sleep per night.. stressed importance of weight loss. Download cognitive therapy APPs (CBT Dehydrator Operator, Julianne) FOLLOW-UP: Schedule a follow-up visit in [address] ress incontinence 55120267 N39.3 RONNY: discussed kegels at length and urodynamic testing and discussed Bulkamid w/Dr Burrell REFERRALS: Referral initiated to an OB-gynecol ogist ( for evaluation of incontinen ce ; urogynecol ogist if no improvemen t ) . discussed low oxalate diet and prelief 65 mg 1 po tidPRN and gave IC diet sheet FOLLOW-UP: Advised to call if there is no improvemen t Follow-up by phone if no improvemen t in 1 month. . NEED TO MAKE APPT FOR ANNUAL EXAM WITH PAP . Health Concerns Section Related Observation LastModified by Organization Detai ls LastModified Time None Recorded Concern Status LastModified by Organization Details LastModified Time None Recorded Advance Directives Directive None Recorded Payers Encounter Date Sequence Insurance Name Policy Number Policy Desir Covered Member ID Desir Member ID Guarantor Name 05/14/2022 1 [facility] [id number] [id number] 05/14/2022 2 [facility] [id number] [facility] [id number] Patricia Fan [facility] 12/19/2022 1 [facility] [id number] [facility] [id number] Patricia Meng [facility] 12/19/2022 2 [facility] (INDEMNITY) [id number] Charles Clark [id number] Patricia [facility] 01/22/2024 1 [facility] [id number] [facility] [id number] Patricia Fan [facility] 01/22/2024 2 [facility] (INDEMNITY) [id number] Charles Clark [id number] Patricia Fan [facility] Notes Date Note Type Note Provider Name and Address Organization Details Recorded Time 05/14/2022 text/html Annual GYNReport ed bypatient.Urinary symptoms:No hematuria; No incontinence Vulva:No genital lesion Vagina:Normal vaginal discharge Breast:No breast pain; No breast lump; No nipple discharge Sexual complaints:No sexual complaints; No pain during intercourse; Normal libido Menopausal Symptoms:No menopausal symptoms;Inadequac y of lubrication of vaginal mucosa Psychological symptoms:No depression; No anxiety; No PMDD Patricia presents for her annual WWE w/o pap. She is post-menopause. Her last mammogram was in 2020. No h/o abn. mammograms.Colonos copy in 2020 and nml. Patricia c/o inability to lose weight despite watching her diet and exercising.Routine labs by PCP and takes care of medical conditions IAM Alexis [address] [place] [address], [phone], [facility] 05/14/2022 12:52:30 12/19/2022 text/html Pt is here today for weight management. Pts last weight was 173 with BMI of 33.8 and today it is 181.6. Con Duran MD [address] [place] [address], [phone], [facility] 12/19/2022 15:33:12 01/22/2024 text/html Annual GYNReport ed bypatient.Menstrua l cycle:Normal menses Urinary symptoms:No hematuria; No incontinence Vulva:No genital lesion Vagina:Normal vaginal discharge Breast:No breast pain; No breast lump; No nipple discharge Sexual complaints:No sexual complaints; No pain during intercourse; Normal libido Menopausal Symptoms:No menopausal symptoms; Normal vaginal lubrication Psychological symptoms:No depression; No anxiety; No PMDD Con Duran MD [address] [place] [address], [phone], [facility] 01/22/2024 10:58:09 OBGyn Episode No OBEpisode recorded.
== END 2024-12-02 14:24 | disposition home or self-care (01) ==
LOC: ANHIMG 14:26
PROVIDERS: PCP Internal Medicine; Visit Provider Nurse Practitioner
DX: Z12.31 Encounter for screening mammogram for malignant neoplasm of breast (principal)
CPT/HCPCS: 77063; 77067

== ENCOUNTER 2025-01-14 14:00 | Outpatient (RCR) | payer OTHER, SELFPAY | END 2025-04-05 09:04 | disposition home or self-care (01) | LOC: ANHDMC 14:00 | PROVIDERS: Visit Provider Nurse Practitioner Family | DX: E11.9 Type 2 diabetes mellitus without complications (principal); Z71.3 Dietary counseling and surveillance | CPT/HCPCS: G0108 ==

== ENCOUNTER 2025-06-03 13:02 | Outpatient (CLI) | payer OTHER, SELFPAY ==
--- NOTE | ~2025-06-03 | DEXA_ITS ---
Bone Density Report Name: KAMERON NGO Age: 59 Sex: Female Ethnicity: White Date of : 1965 Indication: postmenopausal; screening for osteoporosis; Referring Provider: PAU POWELL Study: Bone densitometry was performed. Exam Date: June 03, 2025 Accession number: [id number] Bone Density: Region BMD T-score Z-score Classification AP Spine(L1-L4) 1.109 0.6 2.1 Normal Femoral Neck (Left) 0.761 -0.8 0.6 Normal Total Hip (Left) 1.044 0.8 1.9 Normal Femoral Neck (Right) 0.763 -0.8 0.6 Normal Total Hip (Right) 0.982 0.3 1.4 Normal Total Hip Mean 1.013 0.6 1.7 Normal World Health Organization criteria for BMD impression classify patients as: Normal (T-score at or above -1.0), Osteopenia (T-score between -1.0 and -2.5), or Osteoporosis (T-score at or below -2.5). 10-year Fracture Risk: FRAX not reported because: All T-scores for Spine Total, Hip Total, Femoral Neck at or above -1.0 Clinical Information Provided by Patient: Patient maximum height was 60 Menopause Age: 39 No regular weight bearing exercise Drinks caffeinated beverages Onset of menses at age 11 Number of children 4 Impression: The patient has normal bone mass. Discussion: BONE DENSITY IS ABOVE THE MINIMUM DESIRABLE LEVEL AT ALL SKELETAL SITES TESTED. This patient?s bone mineral density is above the minimum desirable level (T-score -1.0 or better) at all sites measured. The patient should follow a healthful lifestyle (good nutrition with adequate calcium and vitamin D, and appropriate weight-bearing exercise). Follow-Up: Consider repeating this study in 5 years or sooner if there is some new clinical indication. Reported by: FLO on 06/03/2025 1:45:00 PM. Reviewed, dictated and finalized at location A.
--- OUTSIDE RECORDS SUMMARY | 2025-06-03 13:16 | XMS_ITS | Clinical Summary ---
Author Organization [facility] Address [address] [place] [address] Care Team Providers Care Water Resource Consultant Name Role Phone Unavailable Primary Care Provider Unavailabl e Social History Tobacco Use Types Packs/Day Years Used Date Smoking Tobacco: Never Assessed Comments Unknown Sex and Gender Information Value Date Recorded Sex Assigned at Not on file Legal Sex Female 6:10 PM CDT Gender Identity Not on file Sexual Orientation Not on file Plan of Treatment Health Maintenance Due Date Last Done Comments Cervical Cancer Screening Pa p Smear (Age 30 to 64) Every 3 Years 1965 Colorectal Cancer Screening Colonoscopy (10 Years) 1963 Annual Physical 1966 Hepatitis C 1981 DTaP, Tdap and Td Vaccines ( 1 - Tdap) 1982 Cervical Cancer Screening Pa p with HPV Testing (Age 30 to 64) Every 5 Years 1993 Cervical Cancer Screening with HPV 1993 Mammogram Screening 2003 Pneumococcal Vaccine: 50+ Ye ars (1 of 1 - PCV) 2013 Zoster Vaccines (1 of 2) 2013 COVID-19 Vaccine (2023-2 5 season) 2024 RSV Immunization or 60+ Years (1 - 1-dose 75+ series) 2038 Meningococcal B Vaccine Aged Out No l onger eligible based on patient's age to complete this topic Meningococcal Vaccine Aged Out No carolee tex eligible based on patient's age to complete this topic RSV Immunizations Under 20 Months Aged Out No longer eligible based on patient's age to complete this topic
--- OUTSIDE RECORDS SUMMARY | 2025-06-03 13:16 | XMS_ITS | Clinical Summary ---
Author Organization [facility] Address [address] [facility] [address] [place] [address] Care Team Providers Care Geological Specialist Name Role Phone Vlad Ohara DO Primary Care Provider [phone] Source Comments [facility],non-owned Affiliates and Associated Physician Practices is amultiple site organization consisting of ambulatory clinics and hospital sitesin [place], [place], [place] and [place]. This disclosure is being madepursuant to the Care Everywhere program and may not contain all information available regarding this patient. Last updated 18.[facility] Immunizations Immunization Administration Dates Next Due INFLUENZA VACCINE, QUADR. 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 Gender Identity Not on file Sexual Orientation [...] SCREENING 1965 LIPID TESTING 1965 MAMMOGRAM 1963 HIV SCREENING 1978 HEPATITIS C SCREENING 06/24/1981 DTAP/TDAP/TD VACCINES (1 - Tdap) 1982 PAP SMEAR 1984 PNEUMOCOCCAL VACCINE 50+ (1 of 1 - PCV) 2013 ZOSTER VACCINE (1 of 2) 2013 COVID-19 VACCINE (1 - 2023-2 5 season) 2024 DEPRESSION SCREENING 10/07/2024 INFLUENZA VACCINE (#1) 2025 09/04/2020 Respiratory Syncytial Virus (RSV) Vaccine Pt: or [...] to complete this topic MENINGOCOCCAL (Group B) VACC INE SHARED DECISION-MAKING Aged Out No longer eligibl e based on patient's age to complete this topic MENINGOCOCCAL GROUPS A/C/Y/W VACCINE Aged Out No longer eligible b ased on patient's age to complete this topic Insurance [facility] Member Subscriber Plan / Payer (Ef fective 2005-Present) Name:Patricia Vallecillo Relation to Subscriber:Self Name:Patricia Vallecillo Payer ID:[id number] (NAIC) Type:O Address: [facility] [address] HEALTH PLAN [facility] COMMERCIAL [facility] Care Teams Geological Specialist Relationship Specialty Start Date End Date Vlad Ohara DO [address] [facility] [address] [place] [address] PCP - General 04/04/15
--- OUTSIDE RECORDS SUMMARY | 2025-06-03 13:16 | XMS_ITS | Encounter Summary ---
Author Organization [facility] Address [address] [place] [address] Phone Care Team Providers Care Cemetery Warden Name Role Phone Vlad Ohara MD Primary Care Provider [phone] Vlad Ohara MD Unavailable [phone] Encounter Details Date Type Department Care Team (Late st Contact Info) Description 07/22/2019 Orders Only [facility] Medicine Orthopaedic Surgery [address] [facility] [address] [place] [address] Scanning, Provider Social History Tobacco Use Types Packs/Day Years Used Date Smoking Tobacco: Never Smokeless Tobacco: Never Alcohol Use Standard Drinks/Week Comments Yes 10 (1 standard drink = 0.6 oz pu re alcohol) Comments Unknown Sex and Gender Information Value Date Recorded Sex Assigned at Not on file 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
--- OUTSIDE RECORDS SUMMARY | 2025-06-03 13:16 | XMS_ITS | Clinical Summary ---
Author Organization [facility] Address [address] [place] [address] Care Team Providers Care Health Analytics Consultant Name Role Phone Vlad Ohara MD Primary Care Provider [phone] Vlad Ohara MD Unavailable [phone] Allergies Active Allergy Reactions Criticality Noted Date [...] ns:hypothyroidi sm Take 50 mcg by mouth orthotic and prosthetic technician before breakfast Active pen needle, diabetic 32 [...] (03/22/2022): Added automatically from request for surgery [id number] Chondromalacia of medial femoral condyle, right 07/15/2019 Effusion of right knee 07/15/2019 Argueta's cyst of knee, right 07/13/2019 Complete tear of right ACL, subsequent encounter 05/25/2019 Overview (05/25/2019): Added automatically from request for surgery [id number] Tear of medial meniscus of right knee, current 0 05/25/2019 Overview (05/25/2019): Added automatically from request for surgery [id number] Trigeminal neuralgia 08/14/2018 Pain of foot 08/07/2017 [...] on file 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 Gender Identity Not on file Sexual Orientation [...] 2024 03/12/2022, 12/24/2020, 11/26/2020 Influenza Vaccine (#1) 2025 09/04/2020 Pneumococcal vaccine <65 Aged Out No longer eligible based on patient's age to complete this topic Medical Devices Implanted Type Area Turkey Picker Device Identifier Shelf Expiration Date Model / Serial / Lot [employer] [id number] Tightrope Acl Right Device Fixation Titanium Uhmwpe Sterile Latex Free - [id number] Implanted:Qty: 1 on 06/05/2019 by Max Green IV, MD at [facility] Right: Knee [employer] 12/05/2023 AR-[id number] / / [id number] [employer] Ar-4020c-09 Screw Fastthread Biocomposite Interference 9mm X 20mm - [id number] Implanted:Qty: 1 on 06/05/2019 by Max Green IV, MD at [facility] Right: Knee [employer] 11/06/2020 AR-4020C-0 9 / / [id number] Synthes Kit Impl [id number] 5.5mm Secod2.5 Bme Elite 9.5mm 2 Leg Bridge -2019s2 - [id number] Implanted:Qty: 1 on 06/08/2022 by Jorge A Burton MD at [facility] Left: Foot Synthes I [id number] 12/08/2024 EL-2020S2 / / [id number] Insurance [facility] CHOICE PLUS [facility] HMO/PPO Address: [address] [facility]PPO Address: [facility] [address] [place] [address] [place] [address] [facility] CHOICE PLUS [facility] HMO/PPO Address: [facility] [address] [place] [address] [facility] AETNA SIG [address] [employer] [place] [address] C[employer] [facility] CHOICE PLUS [facility] HMO/PPO Address: [address] [address] [place] [address] [place] [address] [facility] H[facility]/PPO Address: [address] [address] [place] [address] [facility] CHOICE [facility]US [facility] HMO/PPO Address: [address] [address] [place] [address] Advance Directives For more information, please contact: [phone] * Full Code (Latest Code Status on File) Date Activated Date Inactivated Comments 06/05/2019 2:05 PM 06/05/2019 7:49 PM Care Teams Health Analytics Consultant Relationship Specialty Start Date End Date Vlad Ohara MD [address] [address] [facility] - General 12/26/16 Vlad Ohara MD [address] [facility] [address] [place] [address] 12/26/16
== END 2025-06-03 13:03 | disposition home or self-care (01) ==
LOC: ANHFOHIMG 13:03
PROVIDERS: PCP Nurse Practitioner; Visit Provider Nurse Practitioner
DX: Z78.0 Asymptomatic menopausal state (principal)
CPT/HCPCS: 77080

== ENCOUNTER 2025-07-05 14:45 | Outpatient (RCR) | payer OTHER, SELFPAY ==
--- NOTE | 2025-05-27 17:44 | OPREHPOC ---
Outpatient Therapy Plan of Care This is a Multidisciplinary Plan of Care that may contain components documented by all disciplines (PT, OT, and ST.) PT Problem 1 PT Problem #1 Knowledge Deficit PT Goal 1 Goal / Goal Update [place]asta with HEP Target Visit 4 PT Goal 2 Goal / Goal Update Report no back pain greater than 2/10 for 2 consecutive weeks Target Visit 8 PT Problem 2 PT Problem #2 Impaired Strength PT Goal 1 Goal / Goal Update 1. Improve jm hip abdcution strength to 4+/5 to improv lateral pelvic stability 2. Improve jm hip flexion strength to 4+/5 to improve hip and labrum stability 3. Improve lower abdominal strength to 4/5 to improve lumbar spine stabilization Target Visit 8
--- NOTE | 2025-05-27 17:44 | PTOPEVAL1 ---
Assessment and note entered by Bobby Whitehead, PT Evaluation Information Assessment Status Evaluation Diagnosis Sacroilitis ICD-10 Condition Codes (PT) Pain in right hip M25.551 Onset Summer 2023 Subjective Information Reports that she has had 2 injections in the right hip for bursitis. She noted improvement but the pain fairly quickly came back. Pain is worse with walking. Most of the pain is in the low right back . Denies recent injury to back or hip. She is getting pain constantly, even at night. Currently trying to do some stretching for pain relief but is requesting guidance. Reported Pain Level Pain Score 2: Self Report Assessment PT Clinical Summary Patient presents with signs and symptoms consistent with lumbar stenosis and compression issues in extension. Patient will benefit form skilled therapy to address lower abdominal weakness, poor hip disassociation, and hip weakness. Emphasis should be placed on lumbar decompression therapy and core stabilization. Plan of Care Interventions Manual Therapy,Neuro Re-education,Therapeutic Activities,Therapeutic Exercise PT Services Indicated Yes Treatment Frequency and 2x/week for 8 visits Duration These treatments will address the objective and functional deficits as defined above. The patient will be advanced safely and appropriately in order for the patient to progress towards his/her prior level of function. Additional exercises will be introduced and as well as a comprehensive home exercise program upon discharge, if needed, ?to ensure carryover of functional gains achieved in the clinic. This treatment plan has been reviewed and agreement upon by the patient.
--- NOTE | 2025-07-05 16:07 | PTOPDC ---
Assessment and note entered by Bobby Wihtehead, PT Evaluation Information Assessment Status Progress Diagnosis Sacroilitis ICD-10 Condition Codes (PT) Pain in right hip M25.551 Onset Summer 2023 Subjective Information Reports that she was doing a bit better but still has trouble with a couple of spots. She can walk about a quarter of a mile before she has issues but cannot go much further than that. She is going to [place] on August and would like to be able to walk more. She is having a lot of trouble pin pointing any activity that increases it. She has a follow up with MD after therapy is concluded. Would like to continue HEP and discharge at this time. Reported Pain Level Pain Score 2: Self Report Assessment PT Clinical Summary Patient has seen improvement in hip mobility, core strength, and hip strength at this time. Appears to still be struggling with focal pain which is improved through exercise and muscle activation. She has responded well to muscle energy and is capable of pain free episodes. At this point a lot of her pain appears to be mechanical in nature and inflammatory as it is not structurally consistent with motion. We discussed tryin oral steroid leading up to trip and will discuss with her MD. Discharged from skilled therapy at this time per patient request. Plan of Care PT Services Indicated Yes
== END 2025-07-06 08:46 | disposition home or self-care (01) ==
LOC: ANHPT 14:45
PROVIDERS: PCP Nurse Practitioner; Visit Provider Orthopaedic Surgery
DX: M46.1 Sacroiliitis, not elsewhere classified (principal); M70.61 Trochanteric bursitis, right hip
CPT/HCPCS: 97110; 97140; 97161; 97530